=== PATIENT | male | born 1950 | race Caucasian/White ===

== ENCOUNTER 2016-10-01 09:56 | Emergency (ER) | payer MEDICARE, OTHER ==
[~2016-10-01] VITALS: Ht 182.9 cm; Wt 107.7 kg
[~2016-10-01 09:56] MED LIST: ALPR0.5T8 PO; ALPR1TAB2 PO; ASPI81TA3 PO; AZIT250T4 PO; CETI10CA PO; CYAN500 PO; FLUO40CA12 PO; METO10TA3 PO; MULT-1018 PO; OXYC1TAB24 PO; OXYC40TA53 PO; PRAZ2CAP2 PO; PROC-4 PO; [UNRECOGNIZED DRUG - CODE] PO
[2016-10-01 10:12] VITALS: BP 120/75; PULSE 101; RESP 20; O2SAT 96
[2016-10-01 10:40] LABS: BASOPHILS % (AUTO) 0 % (0-3); EOSINOPHILS % (AUTO) 0.6 % (0-5); MONOCYTES % (AUTO) 10.1 % (4-12); Mean Corpuscular Hemoglobin 32.2 pg (27.0-35.0); Mean Corpuscular Volume 95.6 fL (81-100); NEUTROPHILS % (AUTO) 63.3 % (40-74); Platelet Count 68 bil/L (150-400)
--- NOTE | 2016-10-01 11:11 | ED.REPORT ---
HPI-Abd Pain F 2 and Over Date of Service Oct 01, 2016 ED Provider: Moiz Boyd DO Nursing Notes Stated Complaint: FLU SYMPTOMS Chief Complaint: FLU/Cold Symptoms Allergies: Coded Allergies: Penicillins (Verified Allergy, Severe, itch, burn, breakout, face swelling , 01/29/16) scopolamine (Verified Allergy, Unknown, UNKNOWN, 01/29/16) sulfamethoxazole (Verified Allergy, Unknown, UNKNOWN, 01/29/16) trimethoprim (Verified Allergy, Unknown, UNKNOWN, 01/29/16) gabapentin (Verified Adverse Reaction, Severe, INCREASING SEDATION, 01/29/16 ) hydrocodone (Verified Adverse Reaction, Intermediate, N/V, 01/29/16) morphine (Verified Adverse Reaction, Intermediate, Hallucinations, 01/29/16) Pt. states he has had it whithout having hallucinations promethazine (Verified Adverse Reaction, Intermediate, TWITCHING FOR SEVERAL DAYS, 01/29/16) Uncoded Allergies: silk sutures (Allergy, Severe, body rejected, became infected, 08/02/12) Scheduled Alprazolam (Alprazolam) 0.5 Mg Tablet 1 MG PO 0630,12,18 Aspirin Chew (Aspirin Chew) 81 Mg Chew 81 MG PO DAILY Azithromycin (Zithromax (Z-Diego)) 250 Mg Tablet 250 MG PO DAILY Cetirizine HCl (Zyrtec) 10 Mg Capsule 10 MG PO MORNING Cyanocobalamin (Vitamin B12) 1,000 Mcg Tablet 1,000 MCG PO MORNING Fluoxetine (Prozac) 40 Mg Capsule 40 MG PO BID Multivitamin (Multi Vitamin Daily) 1 Each Tablet 1 EACH PO DAILY Oseltamivir Phosphate (Tamiflu) 75 Mg Capsule 75 MG PO BID Paregoric (Paregoric) 2 Mg/5 Ml Liquid 4 MG PO QID Prazosin (Prazosin) 2 Mg Capsule 4 MG PO HS oxyCODONE ER (oxyCODONE ER) 40 Mg Tab.er.12h 40 MG PO Q8 Scheduled PRN Alprazolam (Xanax) 1 Mg Tablet 1 MG PO TID PRN PRN For Anxiety Metoclopramide (Metoclopramide) 10 Mg Tablet 10 MG PO Q6H PRN PRN For Nausea Prochlorperazine Maleate (Compazine) 10 Mg Tablet 10 MG PO QID PRN PRN For Nausea oxyCODONE-Acetaminophen 5-325 mg (oxyCODONE-Acetaminophen 5-325 mg) 1 Each Tablet 1 TABLET PO Q6H PRN PRN For Pain Past Medical History Smoking History Former Smoker Physical Exam Initial Vital Signs Vital Signs (First) Date Time Temp Pulse Resp B/P Pulse Ox O2 Delivery O2 Flow Rate FiO2 10/01/16 10:12 38.2 101 20 120/75 96 Room Air Interpretation & Diagnostics Lab Results Interpretation Result Diagram: 10/01/16 1033 10/01/16 1033 Test 10/01/16 10:33 White Blood Count 1.7th/mm3 (3.8-10.1) Red Blood Count 4.07mil/mm3 (4.40-5.80) Hemoglobin 13.1g/dL (13.8-17.2) Hematocrit 38.9% (41.0-50.0) Mean Corpuscular Volume 95.6fL (81-100) Mean Corpuscular Hemoglobin 32.2pg (27.0-35.0) Mean Corpuscular Hemoglobin Concent 33.7% (32.0-37.0) Red Cell Distribution Width 14.3% (12.3-15.4) Platelet Count 68bil/L (150-400) Neutrophils (%) (Auto) 63.3% (40-74) Lymphocytes (%) (Auto) 26.0% (14-46) Monocytes (%) (Auto) 10.1% (4-12) Eosinophils (%) (Auto) 0.6% (0-5) Basophils (%) (Auto) 0% (0-3) Sodium Level 135mEq/L (134-144) Potassium Level 3.8mEq/L (3.5-5.2) Chloride Level 95mEq/L (97-108) Carbon Dioxide Level 26mmol/L (18-29) Blood Urea Nitrogen 15mg/dL (8-27) Creatinine 0.90mg/dL (0.76-1.27) Estimat Glomerular Filtration Rate 89mL/min (>59) Glucose Level 147mg/dL (60-99) Lactic Acid Level 1.4mmol/L (0.4-2.0) Calcium Level 8.9mg/dL (8.5-10.1) Total Bilirubin 0.5mg/dL (0.0-1.2) Aspartate Amino Transf (AST/SGOT) 24U/L (0-50) Alanine Aminotransferase (ALT/SGPT) 20U/L (0-44) Alkaline Phosphatase 124U/L (25-160) Total Protein 7.4g/dL (6.4-8.4) Albumin 3.8g/dL (3.4-5.0) Discharge & Departure Referrals: Jaimee Mott MD (PCP) Jd Olvera Oct 01, 2016 11:11 Leatha Emerson Oct 01, 2016 11:59
--- NOTE | 2016-10-01 11:11 | ED.REPORT ---
HPI-General Illness Date of Service Oct 01, 2016 ED Provider: Moiz Boyd DO 65 year old male patient with history of hypogammaglobulinemia, lymphoma, bone marrow cancer and Castleman's disease, presents to ED complaining of a flu-like illness that began 3 days ago. He complains of a fever (max 103), headache, difficulty sleeping, shaking, fatigue, malaise, diaphoresis, chills, and productive cough with sputum. Slight cough and headache began 3 days ago with the rest of his symptoms starting yesterday. Patient describes feeling "liquid in ears" during cough and describes sputum originating from head and not from lungs. Patient underwent CT scan yesterday and currently is receiving IVIG infusions. Patient took Tylenol and santo seltzer at home with some relief. Denies nausea, vomiting, diarrhea, or dysuria. Nursing Notes Stated Complaint: FLU SYMPTOMS Chief Complaint: FLU/Cold Symptoms Nursing Notes Reviewed: Yes Allergies: Coded Allergies: Penicillins (Verified Allergy, Severe, itch, burn, breakout, face swelling , 01/29/16) scopolamine (Verified Allergy, Unknown, UNKNOWN, 01/29/16) sulfamethoxazole (Verified Allergy, Unknown, UNKNOWN, 01/29/16) trimethoprim (Verified Allergy, Unknown, UNKNOWN, 01/29/16) gabapentin (Verified Adverse Reaction, Severe, INCREASING SEDATION, 01/29/16 ) hydrocodone (Verified Adverse Reaction, Intermediate, N/V, 01/29/16) morphine (Verified Adverse Reaction, Intermediate, Hallucinations, 01/29/16) Pt. states he has had it whithout having hallucinations promethazine (Verified Adverse Reaction, Intermediate, TWITCHING FOR SEVERAL DAYS, 01/29/16) Uncoded Allergies: silk sutures (Allergy, Severe, body rejected, became infected, 08/02/12) Scheduled Alprazolam (Alprazolam) 0.5 Mg Tablet 1 MG PO 0630,,18 Aspirin Chew (Aspirin Chew) 81 Mg Chew 81 MG PO DAILY Azithromycin (Zithromax (Z-Diego)) 250 Mg Tablet 250 MG PO DAILY Cetirizine HCl (Zyrtec) 10 Mg Capsule 10 MG PO MORNING Cyanocobalamin (Vitamin B12) 1,000 Mcg Tablet 1,000 MCG PO MORNING Fluoxetine (Prozac) 40 Mg Capsule 40 MG PO BID Multivitamin (Multi Vitamin Daily) 1 Each Tablet 1 EACH PO DAILY Oseltamivir Phosphate (Tamiflu) 75 Mg Capsule 75 MG PO BID Paregoric (Paregoric) 2 Mg/5 Ml Liquid 4 MG PO QID Prazosin (Prazosin) 2 Mg Capsule 4 MG PO HS oxyCODONE ER (oxyCODONE ER) 40 Mg Tab.er.12h 40 MG PO Q8 Scheduled PRN Alprazolam (Xanax) 1 Mg Tablet 1 MG PO TID PRN PRN For Anxiety Metoclopramide (Metoclopramide) 10 Mg Tablet 10 MG PO Q6H PRN PRN For Nausea Prochlorperazine Maleate (Compazine) 10 Mg Tablet 10 MG PO QID PRN PRN For Nausea oxyCODONE-Acetaminophen 5-325 mg (oxyCODONE-Acetaminophen 5-325 mg) 1 Each Tablet 1 TABLET PO Q6H PRN PRN For Pain General Time Seen by MD: 11:05 Chief Complaint Flu-like illness Hx Obtained From: Patient Arrived By: Walk-in Sudden in Onset?: No Onset Occurred: 3 days ago Symptom Duration: Since onset Severity: Current: Moderate Severity: Maximum: Moderate Associated with: Reports: Cough (productive, sputum from head not lungs), Diaphoresis, Fever, Weakness, Denies: Nausea Additional Notes: patient reports shaking Pertinent Negative: Pt denies other symptoms (diarrhea ) Context Related History: Reports Cancer Recent Healthcare: No recent hospitalization, Recent doctor visit (Dr. Siu , Oncologist) Similar Sx Previous: No Past Medical History Past Medical History Notes: Patient has hypogammaglobulinemia and prior hyperlipidemia ,lymphoma, bone cancer and castleman's disease. Patient currently recieves IVIG infusions. Past Medical History 1. Hypertension. 2. Dyslipidemia. 3. Coronary artery disease. Cardiac catheterization (August 21, 2011) showed normal left main; 90% proximal LAD stenosis; normal circumflex distribution; normal RCA distribution; LVEF 60%. The patient underwent angioplasty with placement of a Xience drug-eluting stent in the proximal LAD. 4. 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 5. 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 On monthly IVIG for hypogammaglobulinemia. 6. Gram-negative sepsis (June 19, 2013). One of two blood cultures yielded Stenotrophomonas maltophilia; a four week course of Levaquin was prescribed), ended July 19, 2013). 7. Influenza A (August 15, 2013). 8. Recurrent shingles. 9. anxiety 10. Depression 11. Hospital admission 10/23/2015-10/29/2015 for metapneumovirus community acquired pneumonia. 12. Neuropathy 13. Chronic back pain Reports: Cancer (bone marrow cancer and lymphoma) Past Surgical History right knee replacement left knee replacement Sinus surgery 6 abdominal surgery Heart catheter with stent Blood transfusion Family History Noncontributory Smoking History Former Smoker Social History Alcohol Use: Denies alcohol use Drug Use: Denies drug use Other Social History: Local resident Ambulatory Status Independent Review of Systems Patient has difficulty sleeping. Full Review of Systems Constitutional: Reports: Chills, Fatigue, Fever, Malaise Ears / Nose / Throat: Reports: Nasal congestion Respiratory: Reports: Prod cough, clear GI: Denies: Diarrhea, Vomiting Skin: Reports Diaphoresis Complete sys rev & neg: except as marked. Physical Exam Vital Signs Vital Signs Date Time Temp Pulse Resp B/P Pulse Ox O2 Delivery O2 Flow Rate FiO2 10/01/16 11:51 88 16 124/62 92 10/01/16 10:12 38.2 101 20 120/75 96 Room Air Initial VS: Reviewed Head / Eyes: Atraumatic, Normocephalic, PERRL ENT: Mucous membranes moist, Conjunctiva normal, No scleral icterus Neck: Supple, Non-tender, Full range of motion Respiratory: Breath sounds normal, Clear to auscultation Cardiovascular: Regular rate & rhythm, Heart sounds normal, Intact distal pulses Abdomen / GI: Soft, Non-tender, No guarding, No rebound, No distention Back: No CVA tenderness Lymphatic: No lymphadenopathy Extremities: Vascular intact, Neuro intact, No swelling, No tenderness Skin: Warm, Dry, No cyanosis Neurologic: Alert, Oriented, Nonfocal Psychiatric: Mood/affect normal, Behavior normal, Normal thought content General/Constitutional: Awake, Alert, Well appearing Interpretation & Diagnostics Interpretation & Diagnostics: Positive for Influenza A Lab Results Interpretation Result Diagram: 10/01/16 1033 10/01/16 1033 Test 10/01/16 10:33 White Blood Count 1.7th/mm3 (3.8-10.1) Red Blood Count 4.07mil/mm3 (4.40-5.80) Hemoglobin 13.1g/dL (13.8-17.2) Hematocrit 38.9% (41.0-50.0) Mean Corpuscular Volume 95.6fL (81-100) Mean Corpuscular Hemoglobin 32.2pg (27.0-35.0) Mean Corpuscular Hemoglobin Concent 33.7% (32.0-37.0) Red Cell Distribution Width 14.3% (12.3-15.4) Platelet Count 68bil/L (150-400) Neutrophils (%) (Auto) 63.3% (40-74) Lymphocytes (%) (Auto) 26.0% (14-46) Monocytes (%) (Auto) 10.1% (4-12) Eosinophils (%) (Auto) 0.6% (0-5) Basophils (%) (Auto) 0% (0-3) Sodium Level 135mEq/L (134-144) Potassium Level 3.8mEq/L (3.5-5.2) Chloride Level 95mEq/L (97-108) Carbon Dioxide Level 26mmol/L (18-29) Blood Urea Nitrogen 15mg/dL (8-27) Creatinine 0.90mg/dL (0.76-1.27) Estimat Glomerular Filtration Rate 89mL/min (>59) Glucose Level 147mg/dL (60-99) Lactic Acid Level 1.4mmol/L (0.4-2.0) Calcium Level 8.9mg/dL (8.5-10.1) Total Bilirubin 0.5mg/dL (0.0-1.2) Aspartate Amino Transf (AST/SGOT) 24U/L (0-50) Alanine Aminotransferase (ALT/SGPT) 20U/L (0-44) Alkaline Phosphatase 124U/L (25-160) Total Protein 7.4g/dL (6.4-8.4) Albumin 3.8g/dL (3.4-5.0) X-Ray Chest Interpretation Chest Xray Interpretation: IMPRESSION: Mildly reduced inspiratory volume, Port-A-Cath in normal position, source of shortness of breath is not found. Dictated by: Cal Mena M.D. on 10/01/2016 at 11:20 Interpretation / Wet Read by: Interpret - Radiologist Re-Eval/Medical Decision Med Decision/Clinical Course Clinically well-appearing with positive influenza A. Will treat with Tamiflu. Return and follow-up precautions given. Source of Hx: Old records Time of Eval: 11:30 Re-Evaluation/Progress Note: Discussed plan for discharge. All questions were addressed. Consultation : Referral / Consult Name: Tenzin Siu MD Call Returned at: 11:28 Sales Professional Bilingual: Will see patient Note: Dr. Siu wants to continue patient IVIG infusions tomorrow. Counseled Regarding: Diagnosis, Lab results, Need for follow-up, When/why to return to ED Discharge & Departure Primary Impression: Influenza due to influenza A virus Disposition: Home Discharge Condition All VS Reviewed: Yes Condition: Stable Additional Instructions: Thank you for entrusting us with your care today. You have tested positive for Influenza A. Take the Tamiflu as prescribed. Make sure to rest and drink plenty of fluids. I spoke with Dr. Siu who would like you to continue the IVIG treatment as scheduled. Please return to the emergency department for any new or concerning symptoms. Referrals: Jaimee Mott MD (PCP) Scribe Attestation Portions of this note were transcribed by Jd Olvera and Leatha Emerson. I, Dr. Can Casanova personally performed the history, physical exam and medical decision- making; I reviewed and confirmed the accuracy of the information in the transcribed note. Signed by: Jd Emerson, Scribes, 10/01/2016 and 1215. . copies to: Jaimee Mott MD, Timothy S DO Oct 01, 2016 11:11 Jd Olvera Oct 01, 2016 11:57 Leatha Emerson Oct 01, 2016 12:06
--- NOTE | 2016-10-01 11:23 | DRSVH ---
PROCEDURE: X-RAY CHEST, TWO VIEWS ([id number]) INDICATIONS: sob TECHNIQUE: 2 views of the chest were acquired. COMPARISON: [facility], CR, XR CHEST 1VW (PORTABLE), 06/19/2016, 13:46. [facility], CR, XR CHEST 2VW, 04/07/2016, 18:32. FINDINGS: Surgical changes and devices: Port-A-Cath in normal position from left-sided approach, surgical clips right axilla area. Lungs and pleura: No pleural effusions or pneumothorax. Lungs are clear. Mediastinum: Mediastinal contours are normal. Heart size is normal. Bones and chest wall: No suspicious bony abnormalities. Soft tissues appear unremarkable. IMPRESSION: Mildly reduced inspiratory volume, Port-A-Cath in normal position, source of shortness of breath is not found. Dictated by: Cal Mena M.D. on 10/01/2016 at 11:20 Approved by: Cal Mena M.D. on 10/01/2016 at 11:21
[2016-10-01] MEDS ORDERED: TAM75UDCAP PO (11:39)
[2016-10-01 11:51] VITALS: BP 124/62; PULSE 88; RESP 16; O2SAT 92
== END 2016-10-01 11:52 | disposition home or self-care (01) ==
LOC: SED 09:56
DX: J10.1 Influenza due to other identified influenza virus with other respiratory manifestations (principal); I10 Essential (primary) hypertension; I25.10 Atherosclerotic heart disease of native coronary artery without angina pectoris; Z98.61 Coronary angioplasty status; Z85.72 Personal history of non-Hodgkin lymphomas; Z85.830 Personal history of malignant neoplasm of bone; Z87.891 Personal history of nicotine dependence; Z79.82 Long term (current) use of aspirin; Z88.0 Allergy status to penicillin; Z88.2 Allergy status to sulfonamides; Z88.5 Allergy status to narcotic agent; Z88.8 Allergy status to other drugs, medicaments and biological substances

== ENCOUNTER 2016-11-14 15:08 | Inpatient (IN) | payer MEDICARE, OTHER ==
[~2016-11-14] VITALS: Ht 182.9 cm; Wt 106.0 kg
[~2016-11-14 15:08] MED LIST changes: -AZIT250T4 PO; +TAM75UDCAP PO
[2016-11-14 15:10] VITALS: BP 123/87; PULSE 94; RESP 16; O2SAT 99
[2016-11-14] MEDS ORDERED: 0.9% Sodium Chloride 1,000 ML IV ONE (16:05)
[2016-11-14] MEDS ORDERED: Ondansetron 2 mg/mL 2 mL Inj IVPUSH ONE (16:05)
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
[2016-11-14 16:19] LABS: BASOPHILS % (AUTO) 0 % (0-3); EOSINOPHILS % (AUTO) 0.4 % (0-5)
[2016-11-14 16:23] LABS: MONOCYTES % (AUTO) 12.3 % (4-12); Mean Corpuscular Volume 94.9 fL (81-100); NEUTROPHILS % (AUTO) 45.4 % (40-74); Platelet Count 91 bil/L (150-400)
[2016-11-14] MEDS: HYDROmorphone 0.5 mg/0.5 mL iSecure Syringe IVPUSH PRN ×3 (16:25→22:28)
[2016-11-14 16:42] LABS: Magnesium 2.3 mg/dL (1.6-2.6)
--- NOTE | 2016-11-14 17:36 | DRSVH ---
PROCEDURE: CT ABDOMEN AND PELVIS WITH CONTRAST ([id number]) INDICATIONS: ABd pain LLQ TECHNIQUE: After the administration of intravenous contrast, 5 mm thick sections acquired from the diaphragm to the symphysis. 5 mm coronal and sagittal reformats were acquired. For radiation dose reduction, the following was used: automated exposure control, adjustment of mA and/or kV according to patient siquentin martin. COMPARISON: [facility], CT, CT CHEST ABD PELVIS W CON, 09/30/2016, 9:47. [facility], CT, ABD/PELVIS W/CON (PNL), 01/30/2010, 19:20. FINDINGS: Image quality: Excellent. ABDOMEN: Lung bases: Lung bases are clear. Heart size is normal. Solid organs: Liver is within normal limits. No change in splenomegaly. Gallbladder is within normal limits. Biliary system is non dilated. Pancreas enhances normally and is diffusely atrophic. No a drenal nodules. Bilateral renal cysts are present. Within the right inferior pole right kidney media lly, there is an ovoid 20 mm diameter soft tissue density focus, as before. There is a nonobstructing 3 mm diameter calculus within the inferior pole left kidney, as before. Kidneys demonstrate otherwis e normal size and enhancement, without hydronephrosis. Peritoneum and bowel: Patient appears be status post gastrojejunostomy. Mildly distended and fluid-f illed small bowel loops within the left hemiabdomen and central pelvis are present. There is no discr ete transition point between distended in nondistended small bowel, although evaluation for such is l imited by lack of oral contrast. No free fluid or air. Normal appendix. Nodes and vessels: No retroperitoneal or mesenteric adenopathy by size criteria. Aorta and inferior vena cava are normal in size. Miscellaneous: No ventral hernias. PELVIS: Genitourinary: Bladder wall thickness is normal. Miscellaneous: No inguinal hernias or adenopathy. Bones: No suspicious bony lesions. ORIF of the pubic symphysis has been performed. No vertebral bod y compression fractures. IMPRESSION: 1. Mildly distended and fluid-filled small bowel loops, possibly indicating ileus, obstruction, or ga stroenteritis. 2. No significant change in right inferior pole renal mass versus hyperdense cyst. 3. Nonobstructing left inferior pole nephrolith. 4. No change in splenomegaly. 5. Normal appendix. Dictated by: Sangita Dillard M.D. on 11/14/2016 at 17:27 Approved by: Sangita Dillard M.D. on 11/14/2016 at 17:32
[2016-11-14] MEDS ORDERED: ALPR2TAB6 PO ×2 (18:29)
[2016-11-14] MEDS ORDERED: DRON2.5C10 PO (18:34)
[2016-11-14] MEDS ORDERED: GUAI600T86 PO (18:37)
[2016-11-14] MEDS ORDERED: NORT25CA PO (18:37)
[2016-11-14] MEDS ORDERED: OMEP20CA11 PO (18:37)
[2016-11-14] MEDS ORDERED: OXYC80TA PO (18:37)
[2016-11-14] MEDS ORDERED: OXYC1TAB24 PO (18:40)
[2016-11-14] MEDS ORDERED: [UNRECOGNIZED DRUG - CODE] PO (18:42)
[2016-11-14] MEDS ORDERED: FLUO40CA PO (18:44)
[2016-11-14] MEDS ORDERED: FLUO20CA25 PO (18:46)
[2016-11-14] MEDS ORDERED: 0.9% Sodium Chloride 1,000 ML IV SCH (19:52)
[2016-11-14] MEDS ORDERED: Alum-Mag Hydrox-Simeth 30 mL Suspension PO PRN (19:55)
[2016-11-14] MEDS ORDERED: Ondansetron 2 mg/mL 2 mL Inj IVPUSH PRN (19:55)
[2016-11-14 20:22] VITALS: BP 133/82; PULSE 60; RESP 18; O2SAT 96
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
[2016-11-14 23:10] LABS: APPEARANCE,URINE CLEAR (CLEAR,HAZY); COLOR,URINE DARK YELLOW (YELLOW); OCCULT BLOOD,URINE NEGATIVE (NEGATIVE); UROBILINOGEN,URINE NORMAL (NORMAL)
[2016-11-14] MEDS ORDERED: HYDROmorphone 0.5 mg/0.5 mL iSecure Syringe IVPUSH PRN (23:40)
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
[2016-11-15] VITALS (8 sets, daily range): BP systolic 109–147; BP diastolic 73–87; PULSE 62–91; RESP 16–18; O2SAT 94–97
[2016-11-15] MEDS: Pantoprazole 4 mg/mL 10 mL Inj IVPUSH SCH ×3 (01:00→17:49)
[2016-11-15] MEDS: D5 0.45% NaCl + KCl 20 mEq/L 1,000 ML IV SCH ×2 (02:04→16:03)
--- NOTE | 2016-11-15 07:33 | NUR ---
admit Left abdominal pain rated 7 on admit. No nausea. IV Dilaudid 0.5mg given and pain reduced to 3. UA sent, no stool overnight - still need stool sample.
[2016-11-15 08:49] LABS: BASOPHILS % (AUTO) 0 % (0-3); EOSINOPHILS % (AUTO) 1.6 % (0-5); MONOCYTES % (AUTO) 11.4 % (4-12); Mean Corpuscular Hemoglobin 31.8 pg (27.0-35.0); Mean Corpuscular Volume 96.3 fL (81-100); NEUTROPHILS % (AUTO) 41.1 % (40-74); Platelet Count 78 bil/L (150-400)
--- NOTE | 2016-11-15 12:02 | PCM.PNSURG ---
Subjective Visit Information: Reason for Visit Abdominal Pain,Sbo Surgery/Surgery Date Post-Op Day # Date of Admission: Nov 14, 2016 at 19:16 Hospital Day # Subjective: doing a lot better, no vomiting, abd pain better, passing flatus Objective Objective Awake in bed Abd: midline scar, soft, nontender Vital Sign- Last 8 Hours Date Time Temp Pulse Resp B/P Pulse Ox O2 Delivery O2 Flow Rate FiO2 11/15/16 10:14 91 128/87 11/15/16 10:13 86 123/79 11/15/16 10:10 36.7 69 18 126/73 97 Room Air 11/15/16 04:44 36.6 82 18 118/82 94 Room Air 11/15/16 04:43 36.6 78 18 147/84 96 Room Air 11/15/16 04:42 36.6 68 16 131/79 95 Room Air Intake and Output- Last 8 Hour 11/15/16 Cumulative From/Thru 06:59 11/14/16 15:10 - 11/15/16 06:00 Intake Total 1310 ml 2310 ml Output Total 470 ml 470 ml Balance 840 ml 1840 ml Intake Oral 674 ml 674 ml IV Total 636 ml 1636 ml Output Urine Total 470 ml 470 ml # Voids 2 2 # Bowel Movements 0 0 Result Diagram: 11/15/16 0832 11/15/16 0832 Assessment & Plan Impression Abd pain, improved Lymphoma Thrombocytopenia Problems: Plan GI planning a colonoscopy tomorrow Sincere Galvez MD Nov 15, 2016 12:02
[2016-11-15] MEDS ORDERED: oxyCODONE-Acetamin 5-325 mg Tablet PO PRN (14:45)
--- NOTE | 2016-11-15 14:46 | CONS ---
[address] [address] CONSULTATION REPORT PATIENT: ELIO GARCIA : 1950 MR#: [id number] ADMIT: 11/14/2016 JOB ID: [id number] DATE OF SERVICE: 11/15/2016 GASTROENTEROLOGY CONSULTATION: REASON FOR CONSULTATION: Abnormal CT scan, abdominal pain, diarrhea. HISTORY OF PRESENT ILLNESS: A pleasant 66-year-old male with history of hypertension, hyperlipidemia, 90% proximal LAD stenosis, left ventricular ejection fraction 60%, history of chronic leukopenia, chronic thrombocytopenia due to , chronic hypogammaglobulinemia due to history recurrent infections, a left superior port in February 04, 2016 for monthly IVIG, prior stage IV lymphoblastic lymphoma, , Castleman disease, history of right and left knee replacement, coronary artery disease, who presents for consultation for abnormal CT scan and abdominal pain. The patient states approximately six days ago he was eating lasagna with meat sauce. The patient then started having abdominal pain right after that and three days thereon he started having diarrhea two times per day, nonbloody. The patient states he has diffuse abdominal pain, mild in intensity, constant. The patient then presented to the emergency department. The patient had a CT scan that was done on November 14, 2016 with contrast down in the pelvis which showed mildly distended small bowel loops and possibly indicating ileus, obstruction, gastroenteritis, nonobstructing left upper pole kidney stone, otherwise negative. Read by General Surgery states that there is thickening within the descending colon and sigmoid colon. In the past, the patient states he has had an EGD and colonoscopy that was done in the past. On the record, this was done on March 16, 2014 which showed esophagitis, gastritis, normal ileum. The patient had a Billroth II anastomosis and sigmoid diverticulosis. It was recommended his repeat colonoscopy should be in seven years at that time. The patient denies family history of colon cancer, inflammatory bowel disease or celiac disease. The patient denies rectal bleeding, nausea, vomiting, hematemesis, or unintentional weight loss. PAST MEDICAL HISTORY: As stated above. PAST SURGERIES: As stated above. MEDICATIONS AT HOME: 1. Alprazolam. 2. Aspirin. 3. Zyrtec. 4. Vitamin B12. 5. Bromperidol. 6. Fluoxetine. 7. Guaifenesin. 8. Multivitamin. 9. Nortriptyline. 10. Omeprazole at 20 in the morning. 11. OxyContin. 12. Oxycodone/acetaminophen. 13. as needed. SOCIAL HISTORY: He quit drinking 40 years ago. His prior IV drug use is unknown. Tobacco: Smoked for 10 years a pack per day. Quit 37 years ago. FAMILY HISTORY: Negative for colon cancer, inflammatory bowel disease or celiac disease. REVIEW OF SYSTEMS: The patient denies headache, blurred vision, nausea, vomiting, chest pain, shortness of breath. Positive for abdominal pain. No skin rash or joint pain. PHYSICAL EXAMINATION: Vital signs upon presentation, temperature 36.7, pulse of 69, respiratory rate 18, blood pressure 126/73, satting 97% on room air. General: In no acute distress. Head: No scars. Eyes: Intact. Throat: Supple. Lungs: Clear to auscultation bilaterally. Cardiovascular: Regular rate. Abdomen is soft, nondistended. There is very minimal left lower quadrant pain upon palpation. Hypoactive bowel sounds. Extremities: No cyanosis, clubbing or edema. LABORATORIES: Labs show a white count 2.6, hemoglobin 12.1, hematocrit 36, platelet count 78. Sodium 137, potassium 4.2, chloride 100, bicarbonate 24, BUN 14, creatinine 0.88. Glucose 143. Calcium 9.1. Total bili 0.4. AST 12, ALT 16, alk phos 99, total protein 7.5, albumin 3.6, lipase 55. ASSESSMENT AND PLAN: This is a pleasant 66-year-old male with a history of chronic leukopenia, chronic thrombocytopenia due to , chronic hypogammaglobinemia due to history of recurrent infections, coronary artery disease, history of 90% proximal LAD stenosis, left ventricular ejection fraction 60%, history of subclavian port February 04, 2016 for monthly IVIG, history of stage IV lymphoplastic lymphoma, Waldenstrom microglobulinemia, Castleman disease, left hip replacement, history of Billroth II gastrojejunal anastomosis presents here with abdominal pain and thickening of the descending and sigmoid colon. The patient's CT scan is suggestive of small bowel obstruction, but given the patient's history, this may just be due to viral gastroenteritis. In any case, we would do a colonoscopy to evaluate the abnormal thickening of the descending colon and sigmoid colon. RECOMMENDATIONS: 1. GoLYTELY prep today. 2. Colonoscopy with anesthesia tomorrow. 3. If patient has recurrent diarrhea, then please check stool studies including CMV, IgG, IgM and PCR in the blood. Will continue to follow.
[2016-11-15] MEDS ORDERED: PEG/Electrolytes 4,000 mL Solution PO ONE (16:00)
--- NOTE | 2016-11-15 19:17 | NUR ---
PAIN/ACTIVITY Patient complained of headache throughout the shift. Administered tylenol and percocet prn. Patient states that helped and its not so bad now. Up ad vane, ambulating into bathroom independently. gait steady. Started colonoscopy prep @ 1600 and has been complaint and drinking it. Care continues.
[2016-11-15] MEDS ORDERED: oxyCODONE ER 80 mg ER12 Tablet PO SCH (20:30)
--- NOTE | 2016-11-15 20:36 | PCM.PNMED ---
Subjective Date of Service Nov 15, 2016 Subjective Patient is seen and examined. States that he is having several bowel movements due to GoLYTELY prep and he does see some formed stool. Abdominal pain is pretty minimal and it is located in the left lower quadrant this a.m. Denies nausea vomiting abdominal distention. He appears comfortable laying in his bed and states that he is on a lot of chronic pain medications due to his cancer history and prior abdominal surgeries. States that his cancer has recurred and he is being treated now for the last 7 years he does not recall the medication that is being used to treat his cancer. He feels that his cancer was in remission for 8.5 years. Patient confirmed DO NOT RESUSCITATE status in the room. He is asking for his pain medications to be continued. Exam Vital Signs Vital Sign - Last Date Time Temp Pulse Resp B/P Pulse Ox O2 Delivery O2 Flow Rate FiO2 11/15/16 15:13 36.6 83 18 109/75 96 Room Air Intake and Output 11/14/16 11/14/16 11/15/16 Cumulative From/Thru 15:00 23:00 07:00 11/14/16 15:10 - 11/15/16 06:00 Intake Total 1000 ml 1310 ml 2310 ml Output Total 470 ml 470 ml Balance 1000 ml 840 ml 1840 ml Intake Oral 674 ml 674 ml IV Total 1000 ml 636 ml 1636 ml Output Urine Total 470 ml 470 ml # Voids 2 2 # Bowel Movements 0 0 Exam Gen.: Pleasant male in no acute distress HEENT: Normocephalic atraumatic Heart: Regular rate and rhythm no S3-S4 sounds Lungs: Clear to auscultation bilaterally Abdomen: Mild tenderness in lower left quadrant, nondistended, soft normal bowel sounds Extremities: Negative for edema Neuro: No focal deficits Psych: Negative for anxiety IVs and Medications Medications Reviewed: Medications were reviewed in detail Lab and Diagnostics Result Diagram: 11/15/16 0832 11/15/16 0832 X-Rays, CTs and MRIs [facility] Diagnostic [place] [address] Patient Name: ELIO GARCIA MR#: [id number] Location: [facility] [place] Ordering Phys: Jatin Ruffin MD Date of Service: 11/14/16 1603 PROCEDURE: CT ABDOMEN AND PELVIS WITH CONTRAST ([id number]) INDICATIONS: ABd pain LLQ TECHNIQUE: After the administration of intravenous contrast, 5 mm thick sections acquired from the diaphragm to the symphysis. 5 mm coronal and sagittal reformats were acquired. For radiation dose reduction, the following was used: automated exposure control, adjustment of mA and/or kV according to patient size. COMPARISON: [facility], CT, CT CHEST ABD PELVIS W CON, 09/30/2016, 9 :47. [facility], CT, ABD/PELVIS W/CON (PNL), 01/30/2010, 19:20. FINDINGS: Image quality: Excellent. ABDOMEN: Lung bases: Lung bases are clear. Heart size is normal. Solid organs: Liver is within normal limits. No change in splenomegaly. Gallbladder is within normal limits. Biliary system is non dilated. Pancreas enhances normally and is diffusely atrophic. No adrenal nodules. Bilateral renal cysts are present. Within the right inferior pole right kidney medially, there is an ovoid 20 mm diameter soft tissue density focus, as before. There is a nonobstructing 3 mm diameter calculus within the inferior pole left kidney, as before. Kidneys demonstrate otherwise normal size and enhancement, without hydronephrosis. Peritoneum and bowel: Patient appears be status post gastrojejunostomy. Mildly distended and fluid-filled small bowel loops within the left hemiabdomen and central pelvis are present. There is no discrete transition point between distended in nondistended small bowel, although evaluation for such is limited by lack of oral contrast. No free fluid or air. Normal appendix. Nodes and vessels: No retroperitoneal or mesenteric adenopathy by size criteria. Aorta and inferior vena cava are normal in size. Miscellaneous: No ventral hernias. PELVIS: Genitourinary: Bladder wall thickness is normal. Miscellaneous: No inguinal hernias or adenopathy. Bones: No suspicious bony lesions. ORIF of the pubic symphysis has been performed. No vertebral body compression fractures. IMPRESSION: 1. Mildly distended and fluid-filled small bowel loops, possibly indicating ileus, obstruction, or gastroenteritis. 2. No significant change in right inferior pole renal mass versus hyperdense cyst. 3. Nonobstructing left inferior pole nephrolith. 4. No change in splenomegaly. 5. Normal appendix. Dictated by: Sangita Dillard M.D. on 11/14/2016 at 17:27 Approved by: Sangita Dillard M.D. on 11/14/2016 at 17:32 Assessment & Plan This is a 66-year-old male with past medical history of stage IV lymphomam lymphoma/Kelton Zandra's agammaglobulinemia/Castleman's syndrome, thrombocytopenia, chronic leukopenia hypertension, CAD is here for a mild SBO that has resolved and now getting worked up for possible thickening versus malignancy in his colon. 1. Acute Small bowel obstruction: Patient has a history of this, however this time around his symptoms are better and he is almost back to baseline. Surgery recommended that he gets a colonoscopy to examine the sigmoid colon and descending colon that appears to have wall thickening. GI is counseled that and aware. They plan to take patient for a colonoscopy tomorrow a.m. 2. Concern for gastroenteritis: Continue to follow patient's bowel movement. Pattern. Consider ordering further IgG, stool cultures if this turns into gastroenteritis based on the Colonoscopy findings 3. Chronic problems: --1 hypertension continue home medications --2 chronic pain syndrome continue home medications --3. Chronic anxiety: Continue her medications Disposition possible discharge to home after colonoscopy tomorrow Pain Evaluation: Pain not Controlled VTE Mechanical Devices: Intermittant Pneumatic CD Resuscitation Status: DNR/DNI:Do Not Resuscitate/Intubate (daughter david is alternate decision maker) Kenyetta Germain DO Nov 15, 2016 20:36
[2016-11-15] MEDS ORDERED: oxyCODONE-Acetamin 5-325 mg Tablet PO SCH (21:00)
[2016-11-15] MEDS: oxyCODONE ER 40 mg ER12 Tablet PO SCH (21:38)
--- NOTE | 2016-11-16 00:20 | NUR ---
GI; pt states frequent liquid bms per bathroom. Has finished colyte prep.
--- NOTE | 2016-11-16 00:47 | NUR ---
GI; clear liquid yellow colored stool.
[2016-11-16] MEDS: D5 0.45% NaCl + KCl 20 mEq/L 1,000 ML IV SCH (04:12)
--- NOTE | 2016-11-16 04:54 | NUR ---
PAIN; no c/o headache. Pleasant. Slept on and off. States is waiting for colonoscopy in the a.m. Addendum: 11/16/16 at 0634 by RAMESH MOYER RN NPO at this time for colonoscopy.
[2016-11-16 06:38] VITALS: BP 126/77; PULSE 88; RESP 16; O2SAT 94
[2016-11-16 07:39] LABS: BASOPHILS % (AUTO) 0 % (0-3); EOSINOPHILS % (AUTO) 2.4 % (0-5); MONOCYTES % (AUTO) 10.8 % (4-12); Mean Corpuscular Hemoglobin 32.1 pg (27.0-35.0); Mean Corpuscular Volume 95.2 fL (81-100); NEUTROPHILS % (AUTO) 39.6 % (40-74); Platelet Count 91 bil/L (150-400)
[2016-11-16] MEDS: Pantoprazole 4 mg/mL 10 mL Inj IVPUSH SCH (07:48)
[2016-11-16] MEDS: oxyCODONE ER 40 mg ER12 Tablet PO SCH (07:48)
[2016-11-16] MEDS ORDERED: PROZ20 PO (08:08)
[2016-11-16] MEDS ORDERED: ALPR1TAB2 PO (08:08)
[2016-11-16] MEDS ORDERED: FLUO40CA12 PO ×2 (08:08→08:11)
[2016-11-16] MEDS ORDERED: ALPR2TAB2 PO ×2 (08:08→08:09)
[2016-11-16] MEDS ORDERED: 0.9% Sodium Chloride 250 ML IV SCH (08:14)
[2016-11-16] MEDS ORDERED: HepLOK Flush 100 unit/mL 5 mL Inj IVFLUSH PRN (08:15)
[2016-11-16] MEDS ORDERED: Sodium Chloride LOK Flush 10 mL Syringe IVFLUSH PRN ×2 (08:15)
--- NOTE | 2016-11-16 08:32 | NUR ---
OFF FLOOR TO ENDO Report given to Cary in Endo. Patient voided and then transferred into wheelchair and was taken off floor to endoscopy.
[2016-11-16 08:43] VITALS: BP 133/86; PULSE 87; RESP 14; O2SAT 98
[2016-11-16] MEDS ORDERED: Lactated Ringer's 1,000 ML IV ONE (08:46)
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
[2016-11-16 09:12] VITALS: BP 103/64; PULSE 91; RESP 14; O2SAT 98
[2016-11-16 09:16] VITALS: BP 107/68; PULSE 80; RESP 14; O2SAT 96
[2016-11-16 09:24] VITALS: BP 119/72; PULSE 93; RESP 16; O2SAT 97
[2016-11-16 09:29] VITALS: BP 137/84; PULSE 96; RESP 16; O2SAT 98
--- NOTE | 2016-11-16 09:34 | PCM.ANEP1 ---
Post Anesthesia Phase 1 PACU Phase 1 Assessment Vital Signs Vital Signs Date Time Temp Pulse Resp B/P Pulse Ox O2 Delivery O2 Flow Rate FiO2 11/16/16 09:29 96 16 137/84 98 Room Air 11/16/16 09:24 93 16 119/72 97 Room Air 11/16/16 09:16 80 14 107/68 96 Nasal Cannula 2 11/16/16 09:12 91 14 103/64 98 Nasal Cannula 4 11/16/16 08:43 36 87 14 133/86 98 Room Air 11/16/16 06:38 36.7 88 16 126/77 94 Room Air Anesthetic Administered: GA Level of Alertness: Awake, talking AVENDAÑO's with Equal Strength: Yes Pain: No Nausea or Vomiting: No Oxygen Delivery: Room Air Lungs: Normal Air Movement Juan Parker MD Nov 16, 2016 09:34
--- NOTE | 2016-11-16 09:35 | PCM.ANEP2 ---
Post Anesthesia Evaluation ASA/CMS Post Anesthesia VS in Patient's Normal Range?: Yes Resp Stable; Airway Patent?: Yes CV Function & Hydration Stable: Yes Mental Status Recovered?: Yes Pain control Satisfactory?: Yes N/V Control Satisfactory?: Yes Juan Parker MD Nov 16, 2016 09:35
--- NOTE | 2016-11-16 10:31 | NUR ---
BACK FROM ENDO Alert and awake. States he's feeling fine, but thirsty. Given ice water and a lemon [place] soda. wanting to discharge home. Notified hospitalist.
--- NOTE | 2016-11-16 12:12 | PCM.PNMED ---
Subjective Date of Service Nov 16, 2016 Subjective CMV, IgG, IgM and PCR in the blood Exam Vital Signs Vital Sign - Last Date Time Temp Pulse Resp B/P Pulse Ox O2 Delivery O2 Flow Rate FiO2 11/15/16 20:10 36.3 62 18 146/76 97 Room Air Intake and Output 11/15/16 11/15/16 11/16/16 Cumulative From/Thru 15:00 23:00 07:00 11/14/16 15:10 - 11/16/16 04:24 Intake Total 1551 ml 750 ml 4611 ml Output Total 1625 ml 2095 ml Balance -74 ml 750 ml 2516 ml Intake Oral 700 ml 1374 ml IV Total 851 ml 750 ml 3237 ml Output Urine Total 1325 ml 1795 ml Stool Total 300 ml 300 ml # Voids 2 # Bowel Movements 0 Lab and Diagnostics Result Diagram: 11/15/16 0832 11/15/16 0832 X-Rays, CTs and MRIs [facility] Diagnostic [place] [address] Patient Name: ELIO GARCIA MR#: [id number] Location: [facility] [place] Ordering Phys: Jatin Ruffin MD Date of Service: 11/14/16 1603 PROCEDURE: CT ABDOMEN AND PELVIS WITH CONTRAST ([id number]) INDICATIONS: ABd pain LLQ TECHNIQUE: After the administration of intravenous contrast, 5 mm thick sections acquired from the diaphragm to the symphysis. 5 mm coronal and sagittal reformats were acquired. For radiation dose reduction, the following was used: automated exposure control, adjustment of mA and/or kV according to patient size. COMPARISON: [facility], CT, CT CHEST ABD PELVIS W CON, 09/30/2016, 9 :47. [facility], CT, ABD/PELVIS W/CON (PNL), 01/30/2010, 19:20. FINDINGS: Image quality: Excellent. ABDOMEN: Lung bases: Lung bases are clear. Heart size is normal. Solid organs: Liver is within normal limits. No change in splenomegaly. Gallbladder is within normal limits. Biliary system is non dilated. Pancreas enhances normally and is diffusely atrophic. No adrenal nodules. Bilateral renal cysts are present. Within the right inferior pole right kidney medially, there is an ovoid 20 mm diameter soft tissue density focus, as before. There is a nonobstructing 3 mm diameter calculus within the inferior pole left kidney, as before. Kidneys demonstrate otherwise normal size and enhancement, without hydronephrosis. Peritoneum and bowel: Patient appears be status post gastrojejunostomy. Mildly distended and fluid-filled small bowel loops within the left hemiabdomen and central pelvis are present. There is no discrete transition point between distended in nondistended small bowel, although evaluation for such is limited by lack of oral contrast. No free fluid or air. Normal appendix. Nodes and vessels: No retroperitoneal or mesenteric adenopathy by size criteria. Aorta and inferior vena cava are normal in size. Miscellaneous: No ventral hernias. PELVIS: Genitourinary: Bladder wall thickness is normal. Miscellaneous: No inguinal hernias or adenopathy. Bones: No suspicious bony lesions. ORIF of the pubic symphysis has been performed. No vertebral body compression fractures. IMPRESSION: 1. Mildly distended and fluid-filled small bowel loops, possibly indicating ileus, obstruction, or gastroenteritis. 2. No significant change in right inferior pole renal mass versus hyperdense cyst. 3. Nonobstructing left inferior pole nephrolith. 4. No change in splenomegaly. 5. Normal appendix. Dictated by: Sangita Dillard M.D. on 11/14/2016 at 17:27 Approved by: Sangita Dillard M.D. 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 1. Acute Small bowel obstruction: Patient has a history of this, however this time around his symptoms are better and he is almost back to baseline. Surgery recommended that he gets a colonoscopy to examine the sigmoid colon and descending colon that appears to have wall thickening. GI is counseled that and aware. They plan to take patient for a colonoscopy tomorrow a.m. 2. Concern for gastroenteritis: Continue to follow patient's bowel movement. Pattern. Consider ordering further IgG, stool cultures if this turns into gastroenteritis based on the Colonoscopy findings 3. Chronic problems: --1 hypertension continue home medications --2 chronic pain syndrome continue home medications --3. Chronic anxiety: Continue her medications Disposition possible discharge to home after colonoscopy tomorrow VTE Mechanical Devices: Intermittant Pneumatic CD Resuscitation Status: DNR/DNI:Do Not Resuscitate/Intubate (daughter david is alternate decision maker) Kenyetta Germain DO Nov 16, 2016 06:24
--- NOTE | 2016-11-16 12:36 | PCM.DIMED ---
Discharge Instructions Date of Service Nov 16, 2016 Dates of Hospitalization Nov 14, 2016 at 19:16 Discharge Diagnosis Discharge Diagnosis Diarrhea likely due to infectious vs. inflammatory va ischemic colitis, abdominal pain, HTN, neuropathy Diet Other (Diet with fiber, low salt) Activity No restrictions Call your provider Fever or Chills, Shortness of breath, Bleeding, Chest pain, Vomitting, Excessive diarrhea, Weakness (unilateral), Other Patient Instructions Please follow up with GI in 2 weeks Please follow up with PCP in 2 weeks Kenyetta Germain DO Nov 16, 2016 12:36
--- NOTE | 2016-11-16 12:41 | PCM.DC.MED ---
Discharge Summary Date of Service Nov 16, 2016 Dates of Hospitalization Date of Hospital Admission Nov 14, 2016 at 19:16 Date of Discharge: Nov 15, 2016 Providers: Admitting Physician: Carmencita Downs MD Primary Care Physician: Jaimee Mott MD Attending Physician: Carmencita Downs MD Diagnosis at Time of Discharge Diagnosis at Time of Discharge Diarrhea likely due to infectious vs. inflammatory va ischemic colitis, abdominal pain, HTN, neuropathy Consultations GI, General Surgery Procedures XRay, CTs & MRIs [facility] Diagnostic Imaging [place] [address] Patient Name: ELIO GARCIA MR#: [id number] Location: [facility] Ordering Phys: Jatin Ruffin MD Date of Service: 11/14/16 1603 PROCEDURE: CT ABDOMEN AND PELVIS WITH CONTRAST ([id number]) INDICATIONS: ABd pain LLQ TECHNIQUE: After the administration of intravenous contrast, 5 mm thick sections acquired from the diaphragm to the symphysis. 5 mm coronal and sagittal reformats were acquired. For radiation dose reduction, the following was used: automated exposure control, adjustment of mA and/or kV according to patient size. COMPARISON: [facility], CT, CT CHEST ABD PELVIS W CON, 09/30/2016, 9 :47. [facility], CT, ABD/PELVIS W/CON (PNL), 01/30/2010, 19:20. FINDINGS: Image quality: Excellent. ABDOMEN: Lung bases: Lung bases are clear. Heart size is normal. Solid organs: Liver is within normal limits. No change in splenomegaly. Gallbladder is within normal limits. Biliary system is non dilated. Pancreas enhances normally and is diffusely atrophic. No adrenal nodules. Bilateral renal cysts are present. Within the right inferior pole right kidney medially, there is an ovoid 20 mm diameter soft tissue density focus, as before. There is a nonobstructing 3 mm diameter calculus within the inferior pole left kidney, as before. Kidneys demonstrate otherwise normal size and enhancement, without hydronephrosis. Peritoneum and bowel: Patient appears be status post gastrojejunostomy. Mildly distended and fluid-filled small bowel loops within the left hemiabdomen and central pelvis are present. There is no discrete transition point between distended in nondistended small bowel, although evaluation for such is limited by lack of oral contrast. No free fluid or air. Normal appendix. Nodes and vessels: No retroperitoneal or mesenteric adenopathy by size criteria. Aorta and inferior vena cava are normal in size. Miscellaneous: No ventral hernias. PELVIS: Genitourinary: Bladder wall thickness is normal. Miscellaneous: No inguinal hernias or adenopathy. Bones: No suspicious bony lesions. ORIF of the pubic symphysis has been performed. No vertebral body compression fractures. IMPRESSION: 1. Mildly distended and fluid-filled small bowel loops, possibly indicating ileus, obstruction, or gastroenteritis. 2. No significant change in right inferior pole renal mass versus hyperdense cyst. 3. Nonobstructing left inferior pole nephrolith. 4. No change in splenomegaly. 5. Normal appendix. Dictated by: Sangita Dillard M.D. on 11/14/2016 at 17:27 Approved by: Sangita Dillard M.D. on 11/14/2016 at 17:32 Invasive Procedures Colonoscopy on 11/15/[address] Dee: mild erythema with ulcerations seen at 30 cm from the anus in a linear fashion, which was biopsied. 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 1. Acute Small bowel obstruction: Patient has a history of this, however this time around his symptoms are better and he is almost back to baseline. Surgery recommended that he gets a colonoscopy to examine the sigmoid colon and descending colon that appears to have wall thickening. GI is counseled that and aware. They have done a colonoscopy on 11/15/16 and found mild erythema with ulcerations seen at 30 cm from the anus in a linear fashion. Biopsies were taken and patient tolerated the procedure well. -- He is toelrating general diet, states his nausea, vomiting and diarrhea have completely resolved. Wanting to return to home. 2. Concern for gastroenteritis: Continue to follow patient's bowel movement. Pattern. TTGIgA, IgG, stool cultures are ordered. Stool fecal leuk and fat studies are ordered. 3. Chronic problems: --1 hypertension continued home medications --2 chronic pain syndrome continued home medications --3. Chronic anxiety: Continued her medications Exam Vital Signs (Last) Date Time Temp Pulse Resp B/P Pulse Ox O2 Delivery O2 Flow Rate FiO2 11/16/16 09:34 Room Air 11/16/16 09:29 96 16 137/84 98 11/16/16 09:16 2 11/16/16 08:43 36 Exam General: NAD HEENT: Normocephalic, atraumatic Heart: RRR, no s3/s4 Lungs: CTA, no crackles or wheezes Abd: NT/ND, normal bowel sounds Ext: Neg for edema Psych: Neg for anxiety Neuro: No focal deficits Test 11/14/16 16:00 11/14/16 16:28 11/14/16 23:06 11/16/16 06:20 Lactic Acid Level 1.3mmol/L (0.4-2.0) Magnesium Level 2.3mg/dL (1.6-2.6) Lipase 55U/L (13-60) Hold Roberta Top Tube Received (Received) Hold Hutchins Top Tube Received (Received) Urine Color Dark yellow (YELLOW) Urine Appearance Clear (CLEAR,HAZY) Urine pH 7.0 (5.0-8.0) Urine Specific Monument 1.010 (1.003-1.035) Urine Protein Tracemg/dL (NEG,TRACE) Urine Glucose (UA) Negativemg/dL (NEGATIVE) Urine Ketones Negativemg/dL (NEGATIVE) Urine Occult Blood Negative (NEGATIVE) Urine Nitrite Negative (NEGATIVE) Urine Bilirubin Negative (NEGATIVE) Urine Urobilinogen Normalmg/dL (NORMAL) Urine Leukocyte Esterase Negative (NEGATIVE) Urine RBC 0-2/hpf (0-2) Urine WBC 0-5/hpf (0-5) Urine Epithelial Cells Occasional/hpf (NONE-MOD) Urine Crystals None seen (NONE SEEN) Urine Bacteria None/hpf (NONE-FEW) Urine Hyaline Casts None/lpf (NONE) Urine Granular Casts None seen (NONE SEEN) Urine Waxy Casts None seen (NONE SEEN) Urine Red Blood Cell Casts None seen (NONE SEEN) Urine White Blood Cell Casts None seen (NONE SEEN) Urine Mucus Present (None Seen) Urine Trichomonas None seen (NONE SEEN) Urine Yeast None (NONE SEEN) Urinalysis Comment None Urine Culture Reflexed Not indicated Sodium Level 137mEq/L (134-144) Potassium Level 4.1mEq/L (3.5-5.2) Chloride Level 101mEq/L (97-108) Carbon Dioxide Level 26mmol/L (18-29) Blood Urea Nitrogen 7mg/dL (8-27) Creatinine 0.81mg/dL (0.76-1.27) Estimat Glomerular Filtration Rate 101mL/min (>59) Glucose Level 112mg/dL (60-99) Calcium Level 8.8mg/dL (8.5-10.1) Total Bilirubin 0.3mg/dL (0.0-1.2) Aspartate Amino Transf (AST/SGOT) 19U/L (0-50) Alanine Aminotransferase (ALT/SGPT) 13U/L (0-44) Alkaline Phosphatase 93U/L (25-160) Total Protein 7.1g/dL (6.4-8.4) Albumin 3.2g/dL (3.4-5.0) Test 11/16/16 07:30 White Blood Count 2.5th/mm3 (3.8-10.1) Red Blood Count 3.93mil/mm3 (4.40-5.80) Hemoglobin 12.6g/dL (13.8-17.2) Hematocrit 37.4% (41.0-50.0) Mean Corpuscular Volume 95.2fL (81-100) Mean Corpuscular Hemoglobin 32.1pg (27.0-35.0) Mean Corpuscular Hemoglobin Concent 33.7% (32.0-37.0) Red Cell Distribution Width 14.4% (12.3-15.4) Platelet Count 91bil/L (150-400) Neutrophils (%) (Auto) 39.6% (40-74) Lymphocytes (%) (Auto) 47.2% (14-46) Monocytes (%) (Auto) 10.8% (4-12) Eosinophils (%) (Auto) 2.4% (0-5) Basophils (%) (Auto) 0% (0-3) Discharge Medications Discharge Medications Alprazolam (Xanax) 1 Mg Tablet 1 MG PO TID (Reported) Alprazolam (Xanax) 2 Mg Tablet 2 MG PO HS (Reported) Aspirin Chew (Aspirin Chew) 81 Mg Chew 81 MG PO QAM (Reported) Cetirizine HCl (Zyrtec) 10 Mg Capsule 10 MG PO MORNING (Reported) Cyanocobalamin (Vitamin B12) 1,000 Mcg Tablet 1,000 MCG PO MORNING (Reported) Dronabinol (Dronabinol) 2.5 Mg Capsule 2.5 MG PO BIDWM (Reported) Fluoxetine (Prozac) 20 Mg Capsule 20 MG PO DAILY (Reported) Fluoxetine (Prozac) 40 Mg Capsule 40 MG PO HS (Reported) Guaifenesin (Guaifenesin ER) 600 Mg Tab.er.12h 600 MG PO DAILY (Reported) Multivitamin (Multi Vitamin Daily) 1 Each Tablet 1 EACH PO DAILY (Reported) Omeprazole (Omeprazole) 20 Mg Capsule.dr 20 MG PO QAM (Reported) Oxycodone ER (Oxycontin) 80 Mg Tab.er.12h 80 MG PO BID (Reported) oxyCODONE-Acetaminophen 5-325 mg (oxyCODONE-Acetaminophen 5-325 mg) 1 Each Tablet 1 TABLET PO TID (Reported) 0600, 1200, 1800. 1 TABLET TID AND 2 AT HS. oxyCODONE-Acetaminophen 5-325 mg (oxyCODONE-Acetaminophen 5-325 mg) 1 Each Tablet 2 TAB PO HS (Reported) TAKE 1 TABLET PO TID AND 2 TABLETS AT HS. TAKES AT MIDNIGHT. As needed Paregoric (Paregoric) 2 Mg/5 Ml Liquid 6 MG PO QID PRN PRN For Diarrhea or Loose Stool (Reported) Prochlorperazine Maleate (Compazine) 10 Mg Tablet 10 MG PO QID PRN PRN For Nausea (Reported) Followup Plan Discharge Diet: Other (Diet with fiber, low salt) Discharge Activity: No restrictions Patient Instructions Please follow up with GI in 2 weeks Please follow up with PCP in 2 weeks Kenyetta Germain DO Nov 16, 2016 12:40
--- NOTE | 2016-11-16 13:46 | NUR ---
DISCHARGE Reviewed discharge paperwork with patient, including follow up with GI in 2 weeks, gave information for GI at [facility] and to follow up with PCP. Included information on what tests were still pending in the lab. Patient states his abdominal pain is feeling much better than when he came into hospital. Advised to gradually advance diet. L chest portacath was de accessed by IV therapy. Got dressed independently. Packed all personal belongings and is waiting for ride to arrive.
[2016-11-16] MEDS ORDERED: fentaNYL-PF 50 mCg/mL 2 mL Inj ONE (13:54)
[2016-11-16] MEDS ORDERED: Propofol 10,000 mCg/mL 20 mL Inj ONE (13:54)
--- NOTE | 2016-11-16 20:11 | ENDO ---
[address] [address] ENDOSCOPY PROCEDURE PATIENT: ELIO GARCIA : 1950 MR#: [id number] ADMIT: 11/14/2016 JOB ID: [id number] TYPE OF OPERATION: Colonoscopy, biopsy. PREOPERATIVE DIAGNOSIS(ES): Abnormal computed tomography scan. POSTOPERATIVE DIAGNOSIS(ES): Mild erythema with ulcerations at 30 cm at the sigmoid colon. Status post biopsy. ANESTHESIA: Monitored anesthesia care. COMPLICATIONS: None. BLOOD LOSS: Minimal. DESCRIPTION OF PROCEDURE: After risks and benefits explained to the patient, informed consent was obtained. After anesthesia administered, colonoscope was inserted from the rectum to the cecum. Mucosa carefully examined. Prep of the patient was excellent. After procedure was done, the scope withdrawn, procedure terminated. FINDINGS: Upon inspection of the anus, no masses, hemorrhoids, ulcers, fissures that were seen. Throughout the entire examination, there is mild erythema with ulcerations seen at 30 cm from the anus in a linear fashion, which was biopsied. The rest of the colonoscopy was normal. Retroflexion was normal. No polyps or masses were seen. IMPRESSIONS: Mild erythema with ulcerations seen at 30 cm from the anus in a linear fashion, status post biopsy. RECOMMENDATIONS: 1. Await pathology results. 2. Okay to start clear liquid diet.
--- NOTE | 2016-11-18 14:05 | PATH ---
SURGICAL PATHOLOGY Attending Physician:Troy Dee MD CASE STATUS: Signed Out PATIENT NAME: ELIO GARCIA PID: [id number] : 1950 DATE COLLECTED:11/16/2016 00:00 SPECIMEN: Colon, Biopsy CLINICAL HISTORY: COLON WALL THICKENING, ERYTHEMA OF COLON 1). SIGMOID COLON BIOPSY FINAL DIAGNOSIS: 1.SIGMOID COLON BIOPSY: COLONIC MUCOSA WITH FIBRINOPURULENT EXUDATE CONSISTENT WITH ULCERATION. NEGATIVE FOR CHRONIC COLITIS. NEGATIVE FOR DYSPLASIA AND MALIGNANCY. ICD10 CODE K52.9 GROSS DESCRIPTION: The specimen is received in one formalin filled container labeled with the patient's name, sublabeled "A0 0.5 x 0.2 x 0.2 CM portion of tissue which is entirely submitted in one cassette. 11/17/2016 [facility] MICRO DESCRIPTION: See diagnosis. ICD-9 CODES: CPT CODES: 1: 85785 Electronically Signed Out Angelina Zarate MD [facility] Pathology [facility] [address], [place] [address] Technical component performed at [facility], [address] [place] [address] Ave[address], [place], [address]
== END 2016-11-16 13:55 | disposition home or self-care (01) | DRG 392 ==
LOC: SED 15:08 → OSC 19:16
PROVIDERS: ADMIT Urology; ATTEND Urology
PROC: 0DBE8ZX Excision of Large Intestine, Via Natural or Artificial Opening Endoscopic, Diagnostic (ICD-10-PCS; principal; 2016-11-16 09:00)
DX: A09 Infectious gastroenteritis and colitis, unspecified (principal); K56.69 Other intestinal obstruction; D47.Z2 Castleman disease; C83.00 Small cell B-cell lymphoma, unspecified site; D80.1 Nonfamilial hypogammaglobulinemia; K55.9 Vascular disorder of intestine, unspecified; R10.32 Left lower quadrant pain; Z79.82 Long term (current) use of aspirin; Z87.891 Personal history of nicotine dependence; D69.6 Thrombocytopenia, unspecified; Z66 Do not resuscitate; I10 Essential (primary) hypertension; G89.4 Chronic pain syndrome; F41.9 Anxiety disorder, unspecified

== ENCOUNTER 2017-02-10 12:36 | Inpatient (IN) | payer MEDICARE, OTHER ==
[2017-02-10] VITALS (8 sets, daily range): BP systolic 120–165; BP diastolic 73–90; PULSE 64–86; RESP 13–18; O2SAT 96–99
[~2017-02-10] VITALS: Ht 167.6 cm; Wt 106.7 kg
[~2017-02-10 12:36] MED LIST changes: -ALPR0.5T8 PO; +ALPR2TAB2 PO; +DRON2.5C10 PO; +GUAI600T86 PO; -METO10TA3 PO; +OMEP20CA11 PO; -OXYC40TA53 PO; +OXYC80TA PO; -PRAZ2CAP2 PO; +PROZ20 PO; -TAM75UDCAP PO
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
[2017-02-10 13:08] LABS: BASOPHILS % (AUTO) 0 % (0-3); Mean Corpuscular Hemoglobin 31.5 pg (27.0-35.0)
[2017-02-10 13:14] LABS: EOSINOPHILS % (AUTO) 0 % (0-5); MONOCYTES % (AUTO) 12.4 % (4-12); Mean Corpuscular Volume 94.2 fL (81-100); NEUTROPHILS % (AUTO) 54.4 % (40-74); Platelet Count 92 bil/L (150-400)
[2017-02-10 13:42] LABS: TROPONIN T < 0.010 ug/L (0.0-0.011)
[2017-02-10 13:47] LABS: Magnesium 1.8 mg/dL (1.6-2.6)
--- NOTE | 2017-02-10 14:28 | DRSVH ---
PROCEDURE: X-RAY CHEST ONE VIEW, PORTABLE ([id number]) INDICATIONS: Chest pain. TECHNIQUE: One view of the chest was acquired. COMPARISON: [facility], CR, XR CHEST 2VW, 10/01/2016, 11:05. FINDINGS: Surgical changes and devices: A left-sided Port-A-Cath central line is identified with the tip overly ing the high superior vena cava. Postoperative changes within the axilla and gastroesophageal juncti on region are noted. Lungs and pleura: No pleural effusions or pneumothorax. Lungs are clear. Mediastinum: Mediastinal contours appear normal. Heart size is normal. Bones and chest wall: No suspicious bony lesions. Overlying soft tissues appear unremarkable. IMPRESSION: Stable chest. No acute cardiopulmonary process is evident. Dictated by: Abraham Monsalve M.D. on 02/10/2017 at 13:26 Approved by: Abraham Monsalve M.D. on 02/10/2017 at 13:26
--- NOTE | 2017-02-10 15:17 | DRSVH ---
PROCEDURE: CT ANGIO CHEST PULMONARY EMBOLISM ([id number]) INDICATIONS: chest pain, malignancy TECHNIQUE: After the administration of intravenous contrast, 2 mm thick sections acquired from the pulmonary api corey to the posterior costophrenic angles. 3-dimensional maximum intensity projection (MIP) coronal a nd sagittal reformats were then acquired through the thorax. For radiation dose reduction, the follo wing was used: automated exposure control, adjustment of mA and/or kV according to patient size. COMPARISON: [facility], CT, CT CHEST ABD PELVIS W CON, 09/30/2016, 9:47. [facility], CT, CHEST WITH CONTRAST, 06/21/2013, 21:17. FINDINGS: Image quality: Diagnostic. Pulmonary arteries: Pulmonary arteries are normal in size, and demonstrate no intraluminal filling d efects to suggest central pulmonary embolism. Lungs and pleura: Evaluation of the lungs is difficult given respiratory motion/suboptimal pulmonary expansion. However, no lobar consolidation, effusion, or pneumothorax is identified. There is mild posterior atelectasis within the lungs. No lung masses evident. No definite pulmonary nodules are a ppreciated. Mediastinum: The heart is enlarged without a pericardial effusion. Coronary artery atherosclerosis i s present. No mediastinal or hilar adenopathy. Thoracic aorta is normal in caliber and enhancement. Esophagus is normal in caliber, without hiatal hernia. A right-sided Port-A-Cath central line is i dentified with the tip positioned within the superior vena cava. Bones and chest wall: No suspicious bony lesions. Ribs and thoracic spine appear intact throughout. Thyroid gland is not enlarged. Mildly enlarged axillary lymph nodes are again identified. The lar gest measures up to approximately 1.2 cm in transverse dimension, previously measuring approximately the same when remeasured in a similar configuration (image 29, series 4). Abdomen: The imaged portions of the upper abdomen are similar to the prior exams. The spleen is enla rged. IMPRESSION: 1. No pulmonary emboli. 2. Unchanged prominent left axillary lymph nodes. 3. Enlarged spleen. 4. No pneumonia or acute pulmonary process is evident. There is mild dependent atelectasis. 5. Enlarged heart. The possibility of mild pulmonary edema is difficult to exclude. Dictated by: Abraham Monsalve M.D. on 02/10/2017 at 14:11 Approved by: Abraham Monsalve M.D. on 02/10/2017 at 14:16
[2017-02-10] MEDS ORDERED: oxyCODONE-Acetamin 5-325 mg Tablet PO ONE (16:00)
[2017-02-10] MEDS ORDERED: Alum-Mag Hydrox-Simeth 30 mL Suspension PO PRN (16:35)
[2017-02-10] MEDS ORDERED: Ondansetron 2 mg/mL 2 mL Inj IVPUSH PRN (16:35)
[2017-02-10] MEDS ORDERED: Polyethylene Glycol (PEG) 17 Gm Powder PO PRN (16:35)
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
[2017-02-10] MEDS ORDERED: MIRT30TA6 PO (17:08)
[2017-02-10] MEDS ORDERED: IMMU20VI IV (17:08)
[2017-02-10] MEDS: 0.9% Sodium Chloride 250 ML IV SCH (17:16)
[2017-02-10] MEDS ORDERED: HepLOK Flush 100 unit/mL 5 mL Inj IVFLUSH PRN (17:20)
[2017-02-10] MEDS ORDERED: Sodium Chloride LOK Flush 10 mL Syringe IVFLUSH PRN ×2 (17:20)
--- NOTE | 2017-02-10 18:57 | NUR ---
Case Management: CASEY explained to patient at 1845, all questions answered. Pt daughter came in mid-way through conversation and instructed pt to have the VA as primary, not Medicare. I left a voice message with Social Work to clarify in am. I also provided the Medicare Part D Drug information. Silvina Moore RN
--- NOTE | 2017-02-10 19:16 | NUR ---
Admit note- Received patient from Emergency dept. Alert and oriented. Patient complaining of 7/10 midsternal chest pain that has not changed or resolved since before arrival to ER. Denies shortness of breath. Oriented to room, call light, tele, etc.
[2017-02-10] MEDS: oxyCODONE-Acetamin 5-325 mg Tablet PO SCH (20:19)
[2017-02-10] MEDS: oxyCODONE ER 40 mg ER12 Tablet PO SCH (23:50)
[2017-02-11] VITALS (9 sets, daily range): BP systolic 125–178; BP diastolic 74–109; PULSE 67–82; RESP 16–19; O2SAT 94–100
[2017-02-11] MEDS ORDERED: Nitroglycerin 2% 1 Gm Ointment TOPICAL ONE (03:55)
[2017-02-11] MEDS: oxyCODONE-Acetamin 5-325 mg Tablet PO SCH ×4 (05:11→23:04)
[2017-02-11 05:28] LABS: BASOPHILS % (AUTO) 0 % (0-3); MONOCYTES % (AUTO) 14.8 % (4-12); Mean Corpuscular Hemoglobin 31.6 pg (27.0-35.0); Mean Corpuscular Volume 95.2 fL (81-100); NEUTROPHILS % (AUTO) 47.1 % (40-74); Platelet Count 90 bil/L (150-400)
--- NOTE | 2017-02-11 05:54 | NUR ---
Pain: pt continues to have chest pain 03/02. Vital signs stable, and as documented. NPO for stress test in am. order for nitro paste, but didn't change pt's chest pain, but pt c/o headache. nitro paste removed at 0515. will continue to monitor.
[2017-02-11 06:10] LABS: Magnesium 1.8 mg/dL (1.6-2.6)
[2017-02-11] MEDS: oxyCODONE ER 40 mg ER12 Tablet PO SCH ×2 (08:04→21:24)
[2017-02-11] MEDS ORDERED: OPIUM PO PRN (09:20)
--- NOTE | 2017-02-11 09:24 | NUR ---
Social Work-initial assessment/ readiness for discharge: Data:See initial assessment. Pt is a 66 y/o male who was admitted on 02/10/17 for chest pain per H&P. Pt's insurance is [facility] and PCP is Jaimee Mott MD. EMR reviewed. Pt's readmission score is 5-high risk. SW met with pt at bedside, SW role explained. Pt is alert and oriented x3. Pt resides at home alone in [place] where he remains independent with ADLs. Pt drives and does not use any DME. Pt has no HH or SNF history. 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 Pt has completed DPOA/ advanced directive paperwork, SW encouraged a copy to be brought in. SW received a message from [facility] stating pt may want to use VA. SW spoke with pt about this and he states he would like to use his VA benefits while in the hospital. ERIC updated [facility] specialist who will inform registration. Pt has been up independent in his room. Pt's family to provide transport home at discharge. SW provided phone number and plan on white board in room. No anticipated discharge needs. SW will continue to follow if needs arise. Assessment:Pt who is independent at baseline. Plan:Pt to discharge home when medically stable via POV. No anticipated discharge needs. SW will continue to follow if needs arise. FOSTER Quinonez Addendum: 02/11/17 at 0928 by KELY LAVARADO SS Amended: Links added.
--- NOTE | 2017-02-11 10:35 | NUR ---
Spoke with Samira in patient access at [facility] and this patient is 70% service connected and sees Cal Watkins at [facility] here at [facility]. Patient also hold [facility] A B & D NO beds available today. Updated CLEANER
[2017-02-11] MEDS ORDERED: oxyCODONE-Acetamin 5-325 mg Tablet PO SCH (11:30)
--- NOTE | 2017-02-11 17:01 | DRSVH ---
PROCEDURE: 1 DAY TREADMILL STRESS TEST Rest and exercise myocardial perfusion SPECT with gated imaging and ejection fraction RADIOPHARMACEUTICAL: 10.3 mCi Tc-99m tetrafosmin IV at rest and 30.2 mCi Tc-99m tetrafosmin IV at pea k exercise. Yom-ima-unheoqqf was performed. INDICATIONS: 66 year-old man with chest pain. Patient has coronary disease with history of myocardia l infarction and coronary artery stenting in 2010. Evaluate myocardial ischemia. TECHNIQUE: Radiopharmaceutical was injected at peak stress test, and also at rest. SPECT images wer e obtained. SPECT myocardial perfusion images were displayed in short axis, horizontal long axis, an d vertical long axis views. Gated images were reviewed using MeicanQUANT software. COMPARISON: [facility], [place], MYOCARD PERF SPECT SINGLE, 06/18/2013, 10:06. CARDIAC STRESS: A standard Clint treadmill exercise tolerance test was performed by the patient under the supervision of an attending staff. The patient exercised for 8 minutes and 48 seconds; functional aerobic impai rment (RAJAN) is -25 %. Hemodynamic data: There is normal blood pressure and heart rate response to exercise stress. Patien t achieved 95% of maximum predicted heart rate at peak exercise. Symptoms: Patient denied chest pain during exercise. EKG: No diagnostic EKG changes of ischemia; no ectopy. FINDINGS: Raw data: There is good myocardial labeling by radiotracer. No significant motion artifacts. Left ventricle function: Gated images demonstrate normal left ventricle wall thickening. No segment al wall motion abnormality. No transient ischemic dilation. The left ventricle resting end-diastolic volume is normal. Left ventricle stress ejection fraction is 60%; normal values are above 45%. Myocardial perfusion: There is a medium-sized, rmjf-ju-nikpwfjihr severe, partially reversible perfu marlon defect in the inferior lateral wall, suspicious for myocardial ischemia. On prone imaging, the d efect has persistent. Comparison prior examinations: Compared with the last admission 06/18/2013, the inferolateral perfusi on defect is new. IMPRESSION: 1. Abnormal myocardial perfusion images. There is a medium-sized, dwcn-mr-amxswmzpmd severe, reversib le perfusion defect in the inferior lateral wall, consistent with myocardial ischemia. 2. Normal left ventricular volume and systolic function. 3. Good exercise capacity. No chest pain or diagnostic EKG changes for ischemia. PQRS ATTESTATIONS: Measure 322 - Is this imaging test primarily performed on a low-risk surgery patient for preoperative evaluation within 30 days preceding their low-risk non-cardiac surgery? Low-risk surgery is defined as cardiac or myocardial infarction less than 1%, including (but not limited to) endoscopic pr ocedures, superficial procedures, cataract surgery, and excisional breast surgery: Answer: No Measure 323 - Is this imaging test performed primarily for the monitoring of an asymptomatic patient who had percutaneous coronary intervention on the visit date or within 2 years of the visit date? An swer: No Measure 324 - Is this imaging test performed primarily for the initial detection and risk assessment on an asymptomatic, low coronary heart disease patient? Low CHD risk definition = clinicians should consider the maximum number of available patient factors used to estimate risk based on [place] (A TP III criteria), typically age, gender, diabetes, smoking status, and use of blood pressure medicati on, and integrate age appropriate estimates for missing elements, such as LDL or standard blood press ure. Answer: No Dictated by: Frida Colvin M.D. on 02/11/2017 at 16:48 Approved by: Frida Colvin M.D. on 02/11/2017 at 16:59
--- NOTE | 2017-02-11 17:31 | DRSVH ---
[facility] [address] [place] [address] Echocardiogram Report Name: ELIO GARCIA CStudy Date: 02/11/2017 Height: 66 in Hospital Exam Location: [facility] Weight: 235 lb Gender: Male BSA: 2.1 m2 : 1950 Age: 66 yrs BP: 135/75 mmHg Reason For Study: Chest pain Ordering Physician: Performed By: Yareli Wallace Referring Physician: Dr. [place] Mott Interpretation Summary The left ventricle is normal in size, wall thickness, and systolic function without any focal wall motion abnormalities. The ejection fraction is estimated to be 60-65%. There are no focal wall motion abnormalities. The right ventricle is normal in size and function. The left atrium is moderately dilated. No other echocardiographic abnormalities seen. No obvious etiology noted for the patients c/o chest pain. Compared to the prior echo report on 09/10/2015, there is no significant change. Procedure: A two-dimensional transthoracic echocardiogram with color flow and Doppler was performed. The study quality was technically adequate. Comparison is made with the echocardiogram of 09-11-15. The patient was in normal sinus rhythm during the exam. Left Ventricle: The left ventricle is normal in size, wall thickness, and systolic function without any focal wall motion abnormalities. The ejection fraction is estimated to be 60-65%. There are no focal wall motion abnormalities. The E/A ratio is reversed with an elevated E/E', suggesting impaired early relaxation of the left ventricle with possible increased filling pressures. Right Ventricle: The right ventricle is normal in size and function. Atria: The left atrium is moderately dilated. Right atrial size is normal. The interatrial septum is intact with no evidence for an atrial septal defect. Mitral Valve: The mitral valve leaflets appear mildly thickened, but open well. There is mild mitral regurgitation. Aortic Valve: The aortic valve is trileaflet. Leaflet mobility is mildly reduced. No aortic regurgitation is present. Tricuspid Valve: The tricuspid valve leaflets are thin and pliable. There is mild tricuspid regurgitation. Pulmonic Valve: The pulmonic valve is normal in structure and function. There is a trace or physiologic amount of pulmonic regurgitation. Great Vessels: The aortic root is mildly dilated. The ascending aorta is mildly enlarged. The inferior vena cava was not visualized. Pericardium/ Pleura There is no pericardial effusion. There is no pleural effusion. MMode/2D Measurements & Calculations LVIDd LA dimension: 4.7 cm RA long axis: 5.8 cm LVOT diam: 2.5 cm : 5.7 cm Ao root diam LVIDs LA A2 area: 31.3 cm RA area: 22.1 cm : 3.1 cm LA A4 area: 34.6 cm RA vol: 71.4 ml Aortic Jxn: 3.1 cm FS: 45.0 % LA length (vol) RA : 33.3 ml/m asc Aorta Diam IVSd: 1.1 cm RVDd major: 5.9 cm LVPWd LA vol: 137.4 ml Ao Arch Diam (Prox : 1.0 cm LA vol index Trans): 3.5 cm : 64.1 ml/m2 MINE (plan) LV nelson. diameter/BSA LV sys. diameter/BSA RVD1 (basal) : 3.1 cm2 (cm/m^2): 2.6 (cm/m^2): 1.5 : 4.5 cm RVD2 (mid) : 5.2 cm Doppler Measurements & Calculations Ao V2 max MV E max juan alberto MV E/A: 0.82 TR max juan alberto : 230.8 cm/sec : 69.8 cm/sec Med Peak E' Juan Alberto : 266.0 cm/sec Ao max PG MV A max juan alberto TR max PG : 21.3 mmHg : 85.3 cm/sec E/E' med: 14.1 : 28.3 mmHg Ao mean PG MV P1/2t: 52.4 msec Lat Peak E' Juan Alberto PA V2 max : 10.2 mmHg : 81.2 cm/sec LVOT Max Juan Alberto E/E' lat: 6.8 PA mean PG : 97.4 cm/sec E/e' average: 10.5 MINE(I,D): 2.3 cm Pulm A Revs Dur PA Accel Time sev ratio : 0.08 sec MV A dur: 0.13 sec MV dec time MV P1/2t max juan alberto Ao V2 mean LV V1 max PG : 0.18 sec : 148.9 cm/sec MVA(P1/2t): 4.2 cm2 Ao V2 VTI: 44.6 cm LV V1 VTI MINE(V,D): 2.1 cm2 : 20.5 cm PA V2 mean MINE indexed to BSA Pulm A Revs Dur - MV A : 48.9 cm/sec (cm^2/m^2): 1.1 Dur: -0.01 msec Reading Physician:05:30 PM
--- NOTE | 2017-02-11 17:55 | PCM.PNMED ---
Subjective Date of Service Feb 11, 2017 Subjective Continues to have chest pain but less frequent and less severe. Continues to be unresponsive to nitrates Exam Vital Signs Vital Sign - Last Date Time Temp Pulse Resp B/P Pulse Ox O2 Delivery O2 Flow Rate FiO2 02/11/17 13:22 36.8 78 16 132/74 96 Room Air 02/10/17 15:06 1 Intake and Output 02/10/17 02/10/17 02/11/17 Cumulative From/Thru 15:00 23:00 07:00 02/10/17 12:39 - 02/11/17 06:12 Intake Total 400 ml 200 ml 600 ml Output Total 650 ml 775 ml 1425 ml Balance -250 ml -575 ml -825 ml Intake Oral 400 ml 200 ml 600 ml Output Urine Total 650 ml 775 ml 1425 ml Exam Gen. patient is lying comfortably in hospital bed HEENT: Head is normocephalic atraumatic, Pupils equal and reactive, extraocular movements intact, Lungs clear to auscultation bilaterally Heart regular rate and rhythm without murmurs gallops or rubs Abdomen soft nontender without hepatosplenomegaly Extremities pulses are present dorsalis pedis posterior tibialis and radial. tSkin is warm and dry there are no rashes, Psych alert and oriented to person place and time Neuro cranial nerves II through XII are grossly intact Lymph: There is no lymphadenopathy appreciated in the cervical supra infraclavicular regions : no aguayo IVs and Medications Medications Reviewed: Medications were reviewed in detail Lab and Diagnostics Result Diagram: 02/11/17 0515 02/11/17 0515 Cardiac Echo Impressions The left ventricle is normal in size, wall thickness, and systolic function without any focal wall motion abnormalities. The ejection fraction is estimated to be 60-65%. There are no focal wall motion abnormalities. The right ventricle is normal in size and function. The left atrium is moderately dilated. No other echocardiographic abnormalities seen. No obvious etiology noted for the patients c/o chest pain. Compared to the prior echo report on 09/10/2015, there is no significant change. Additional Diagnostics PROCEDURE: 1 DAY TREADMILL STRESS TEST Rest and exercise myocardial perfusion SPECT with gated imaging and ejection fraction RADIOPHARMACEUTICAL: 10.3 mCi Tc-99m tetrafosmin IV at rest and 30.2 mCi Tc-99m tetrafosmin IV at peak exercise. Mmg-kbe-[id number] was performed. INDICATIONS: 66 year-old man with chest pain. Patient has coronary disease with history of myocardial infarction and coronary artery stenting in 2010. Evaluate myocardial ischemia. IMPRESSION: 1. Abnormal myocardial perfusion images. There is a medium-sized, mild-to- moderately severe, reversible perfusion defect in the inferior lateral wall, consistent with myocardial ischemia. 2. Normal left ventricular volume and systolic function. 3. Good exercise capacity. No chest pain or diagnostic EKG changes for ischemia. PQRS ATTESTATIONS: Measure 322 - Is this imaging test primarily performed on a low-risk surgery patient for preoperative evaluation within 30 days preceding their low-risk non- cardiac surgery? Low-risk surgery is defined as cardiac or myocardial infarction less than 1%, including (but not limited to) endoscopic procedures, superficial procedures, cataract surgery, and excisional breast surgery: Answer : No Measure 323 - Is this imaging test performed primarily for the monitoring of an asymptomatic patient who had percutaneous coronary intervention on the visit date or within 2 years of the visit date? Answer: No Measure 324 - Is this imaging test performed primarily for the initial detection and risk assessment on an asymptomatic, low coronary heart disease patient? Low CHD risk definition = clinicians should consider the maximum number of available patient factors used to estimate risk based on Melber ( ATP III criteria), typically age, gender, diabetes, smoking status, and use of blood pressure medication, and integrate age appropriate estimates for missing elements, such as LDL or standard blood pressure. Answer: No Dictated by: Frida Colvin M.D. on 02/11/2017 at 16:48 Assessment & Plan 66-year-old gentleman with past medical history of PA status post stent in 2010 , history of stage IV lymphoplasmacytic lymphoma, chronic hypogammaglobulinemia on monthly IVIG, hypertension, hyperlipidemia came to emergency room due to chest pain of 12 hrs. # Chest pain due to CAD -Symptom consistent with cardiac chest pain but EKG negative 2, troponin negative, . Chest pain unresponsive to nitrate -CTA negative for PE -Telemetry -Morphine for pain control -Echocardiogram unremarkable as above - stress test medium-sized, mpre-wa-fvtjvslbvl severe, reversible perfusion defect in the inferior lateral wall, consistent with myocardial ischemia. -Consulted cardiology. Keep nothing by mouth after midnight in case cardiac cath is decided -will start metoprolol low-dose. Started statin. Continue aspirin # History of lymphoma,hypogammaglobulinemia on monthly IVIG -Dr. Siu oncologist outpatient Observation status, changed to inpatient Full code Resuscitation Status: CPR: Attempt Resuscitation Baldomero Spencer MD Feb 11, 2017 17:55
--- NOTE | 2017-02-11 18:45 | NUR ---
Case Management: COS to Inpatient. IMM explained to patient at 1835, all questions answered. Signed original placed in chart, copy given to patient. Silvina Moore RN
[2017-02-11] MEDS: 0.9% Sodium Chloride 250 ML IV SCH (19:13)
[2017-02-11] MEDS ORDERED: oxyCODONE ER 80 mg ER12 Tablet PO SCH (20:30)
--- NOTE | 2017-02-11 21:34 | PCM.CHPCAR ---
Consult Subjective Date of service Feb 11, 2017 Date of admit Feb 10, 2017 at 16:33 Provider Requesting Consult Primary Care Physician Primary Care Physician: Jaimee Mott MD Chief Complaint chest pain History of Present Illness This is a 66-year-old male with history of coronary artery disease and the patient had a drug eluting stent into his LAD.The patient never followed up with the supervisor costuming. The patient was admitted yesterday for chest pain that was intermittent and that started around 4 o'clock in the morning. The patient decided to present to the emergency room. His serial troponins were negative. EKG was unremarkable. The patient had a echocardiogram which showed normal LV wall motion and normal LV about your fraction. He also recently went for a treadmill sestamibi which showed no evidence of significant ischemia based on my personal review but showed evidence of infarct in the inferolateral wall. There's no evidence of ischemia. The patient has been stable over the past 6 hours. Review of Systems General: Denies: Energy Fatigue Ears, Nose, Mouth & Throat: Denies: Any hearing loss Respiratory: Denies: Orthopnea or PND Cardiovascular: Reports: Atypical chest discomfort Lightheadedness Palpitations Gastrointestinal: Denies: Ulcers or GI blood loss Hematologic/Immunologic: Reports: Recent history of anemia PMH Past Medical History 1. Hypertension. 2. Dyslipidemia. 3. Coronary artery disease. Cardiac catheterization (August 21, 2011) showed normal left main; 90% proximal LAD stenosis; normal circumflex distribution; normal RCA distribution; LVEF 60%. The patient underwent angioplasty with placement of a Xience drug-eluting stent in the proximal LAD. 4. 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 5. 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 On monthly IVIG for hypogammaglobulinemia. 6. Gram-negative sepsis (June 19, 2013). One of two blood cultures yielded Stenotrophomonas maltophilia; a four week course of Levaquin was prescribed), ended July 19, 2013). 7. Influenza A (August 15, 2013). 8. Recurrent shingles. 9. anxiety 10. Depression 11. Hospital admission 10/23/2015-10/29/2015 for metapneumovirus community acquired pneumonia. 12. Neuropathy 13. Chronic back pain September 2016 note indicates oxycodone ER 40 mg every 8, and ox Bedside Blood Glucose: 111 Scheduled Alprazolam (Xanax) 1 Mg Tablet 1 MG PO TIDWM (Reported) Alprazolam (Xanax) 2 Mg Tablet 2 MG PO HS (Reported) Aspirin Chew (Aspirin Chew) 81 Mg Chew 81 MG PO QAM (Reported) Cetirizine HCl (Zyrtec) 10 Mg Capsule 10 MG PO MORNING (Reported) Cyanocobalamin (Vitamin B12) 1,000 Mcg Tablet 1,000 MCG PO MORNING (Reported) Fluoxetine (Prozac) 20 Mg Capsule 20 MG PO BID (Reported) Guaifenesin (Guaifenesin ER) 600 Mg Tab.er.12h 600 MG PO DAILY (Reported) Immune Glob,Harper Caprylate(IgG) (Gamunex-C) 20 Gm/200 Ml Vial 20 GM IV MONTHLY ( Reported) Mirtazapine (Mirtazapine) 30 Mg Tablet 30 MG PO HS (Reported) Multivitamin (Multi Vitamin Daily) 1 Each Tablet 1 EACH PO DAILY (Reported) Omeprazole (Omeprazole) 20 Mg Capsule.dr 20 MG PO BIDAC (Reported) Oxycodone ER (Oxycontin) 80 Mg Tab.er.12h 80 MG PO BID (Reported) oxyCODONE-Acetaminophen 5-325 mg (oxyCODONE-Acetaminophen 5-325 mg) 1 Each Tablet 1-2 TABLET PO QID (Reported) 0600, 1200, 1800. 1 TABLET TID AND 2 AT HS. Scheduled PRN Paregoric (Paregoric) 2 Mg/5 Ml Liquid 6 MG PO QID PRN PRN DUMPING SYNDROME ( Reported) Discontinued Medications Dronabinol (Dronabinol) 2.5 Mg Capsule 2.5 MG PO BIDWM (Reported) Fluoxetine (Prozac) 40 Mg Capsule 40 MG PO HS (Reported) Prochlorperazine Maleate (Compazine) 10 Mg Tablet 10 MG PO QID PRN PRN For Nausea (Reported) oxyCODONE-Acetaminophen 5-325 mg (oxyCODONE-Acetaminophen 5-325 mg) 1 Each Tablet 2 TAB PO HS (Reported) TAKE 1 TABLET PO TID AND 2 TABLETS AT HS. TAKES AT MIDNIGHT. Current Inpatient Medications Current Medications Nitroglycerin 0.4 mg Q5MIN PRN SL Last administered on 02/10/17 15:10; Admin Dose 0.4 MG; Start 02/10/17 at 13:30 Al Hydrox/Mg Hydrox/Simethicone 30 ml Q6H PRN PO; Start 02/10/17 at 16:35 Ondansetron HCl 4 to 8 mg Q4H PRN IVPUSH; Start 02/10/17 at 16:35 Senna 17.2 mg BID PRN PO; Start 02/10/17 at 16:35 Polyethylene Glycol 17 gm DAILY PRN PO; Start 02/10/17 at 16:35 Atorvastatin Calcium 20 mg 20 mg HS PO Last administered on 02/10/17 20:17; Admin Dose 20 MG; Start 02/10/17 at 21:00 Sodium Chloride 250 ml @ 10 mls/hr Q24H IV Last administered on 02/11/17 19:13 ; Admin Dose 10 MLS/HR; Start 02/10/17 at 17:16 Alprazolam 1 mg DAILY@,,18 PO Last administered on 02/11/17 19:11; Admin Dose 1 MG; Start 02/11/17 at 06:00 Alprazolam 2 mg HS PO Last administered on 02/10/17 20:17; Admin Dose 2 MG; Start 02/10/17 at 21:00 Oxycodone HCl 80 mg DAILY@ PO Last administered on 02/11/17 08:04; Admin Dose 80 MG; Start 02/10/17 at 21:00 Oxycodone/ Acetaminophen 1 tab DAILY@,12,18 PO Last administered on 02/11/17 19:13; Admin Dose 1 TAB; Start 02/11/17 at 06:00 Fluoxetine HCl 20 mg BID PO Last administered on 02/11/17 08:04; Admin Dose 20 MG; Start 02/10/17 at 20:30 Prochlorperazine 10 mg Q6H PRN PO; Start 02/10/17 at 19:30 Oxycodone/ Acetaminophen 2 tab HS PO Last administered on 02/10/17 20:19; Admin Dose 2 TAB; Start 02/10/17 at 21:00 Alprazolam 1 mg TIDWM PO; Start 02/11/17 at 12:00; Status UNV Aspirin 81 mg DAILY PO Last administered on 6/21/17at 10:51; Admin Dose 81 MG; Start 02/11/17 at 09:20 Cyanocobalamin 1,000 mcg MORNING PO; Start 02/12/17 at 08:30 Guaifenesin 600 mg DAILY PO; Start 02/12/17 at 08:30 Oxycodone HCl 80 mg BID PO; Start 02/11/17 at 20:30; Status UNV Oxycodone/ Acetaminophen 1 tab QID PO; Start 02/11/17 at 11:30; Status UNV Paregoric 6 mg QID PRN PO; Start 02/11/17 at 09:20; Status UNV Non-Formulary Medication 2 mg HS PO; Start 02/11/17 at 21:00; Status UNV Loratadine 10 mg DAILY PO; Start 02/12/17 at 08:30 Mirtazapine 30 mg HS PO; Start 02/11/17 at 21:00 Prenat Multivit/ [place]/Iron/Folic Ac 1 tablet DAILY PO; Start 02/12/17 at 08:30 Pantoprazole 20 mg 0630 PO; Start 02/12/17 at 06:30 Metoprolol Tartrate 12.5 mg BID PO; Start 02/11/17 at 20:30 Allergies: Coded Allergies: Penicillins (Verified Allergy, Severe, itch, burn, breakout, face swelling , 02/10/17) scopolamine (Verified Allergy, Unknown, UNKNOWN, 02/10/17) sulfamethoxazole (Verified Allergy, Unknown, UNKNOWN, 02/10/17) trimethoprim (Verified Allergy, Unknown, UNKNOWN, 02/10/17) gabapentin (Verified Adverse Reaction, Severe, INCREASING SEDATION, ) hydrocodone (Verified Adverse Reaction, Intermediate, N/V, 02/10/17) morphine (Verified Adverse Reaction, Intermediate, Hallucinations, 02/10/17 ) Pt. states he has had it whithout having hallucinations promethazine (Verified Adverse Reaction, Intermediate, TWITCHING FOR SEVERAL DAYS, 02/10/17) Uncoded Allergies: silk sutures (Allergy, Severe, body rejected, became infected, 08/02/12) Family History Family History Sister of brain cancer Father at age 91 due to heart problems. Had CABG Mother at age 87 due to unknown medical issues. Social History Hx Alcohol Use: NoHx Substance Use: NoHx Tobacco Use: Yes (smoked for 10yrs, pack/day, quit 37yrs ago) Smoking Status: Former Smoker Exam Vital Signs Vital Sign - Last Date Time Temp Pulse Resp B/P Pulse Ox O2 Delivery O2 Flow Rate FiO2 02/11/17 20:58 36.4 82 18 178/109 100 Room Air 02/10/17 15:06 1 Intake and Output 02/10/17 02/10/17 02/11/17 Cumulative From/Thru 15:00 23:00 07:00 02/10/17 12:39 - 02/11/17 06:12 Intake Total 400 ml 200 ml 600 ml Output Total 650 ml 775 ml 1425 ml Balance -250 ml -575 ml -825 ml Intake Oral 400 ml 200 ml 600 ml Output Urine Total 650 ml 775 ml 1425 ml General: Pleasant Cooperative Skin: Warm & dry to touch Head: Normocephalic Eye: EOMS intact Neck: No JVD Chest: Clear auscultation w/o rales/wheeze Cardiac: Regular rhythm Pulses: Pulses full/equal all extremities Lab and Diagnostics Result Diagram: 02/11/1751402/11/1715 Assessment & Plan Problems: (1) Non-cardiac chest pain Plan: Patient's chest pain is unlikely angina since he did not experience any chest pain during high workload stress.. Patient stress test is the low risk study given the fact there's no evidence of significant ischemia. I am not overly confident even stating that he has had an infarct in the inferolateral wall since his echocardiogram did not show any focal wall motion abnormalities. The patient should be discharged on aspirin, Beta Blockers and statins for risk factor modification. He should follow up at our cardiology clinic since he is never established with a supervisor costuming after his acute coronary syndrome. Patient may be discharged home. Status: Acute ICD Code: R07.89 (2) CAD (coronary artery disease) Qualifiers: Coronary Disease-Associated Artery/Lesion type: [place] artery [place] vs. transplanted heart: [place] heart Associated angina: without angina Qualified Code: I25.10 - Atherosclerotic heart disease of [place] coronary artery without angina pectoris Status: Acute ICD Code: I25.10 Resuscitation Status: CPR: Attempt Resuscitation Time spent 50 minutes Jared Hayes MD Feb 11, 2017 21:34
[2017-02-12 01:00] VITALS: BP 135/85; PULSE 70; RESP 18; O2SAT 97
[2017-02-12 05:00] VITALS: BP 127/87; PULSE 74; RESP 18; O2SAT 95
[2017-02-12] MEDS: oxyCODONE-Acetamin 5-325 mg Tablet PO SCH (05:45)
[2017-02-12 06:06] VITALS: PULSE 79
--- NOTE | 2017-02-12 06:11 | NUR ---
PAIN Pt has rec'd scheduled pain medication throughout shift. Pts pain primarily in chest, and pt also c/o generalized joint pain. Pt has rated pain "5-6". Pt has stated some relief, never reports pain-free. Pt has been observed to be sleeping, w/out s/sx of discomfort. Continue to monitor. Call light in reach. Intentional rounding.
[2017-02-12] MEDS ORDERED: Pantoprazole 20 mg ER24 Tablet PO SCH (06:30)
[2017-02-12 07:55] VITALS: BP 129/70; PULSE 62; RESP 20; O2SAT 94
[2017-02-12] MEDS ORDERED: guaiFENesin 600 mg ER12 Tablet PO SCH (08:30)
[2017-02-12] MEDS ORDERED: Multivit-Miner-Folic Acid-Iron Tablet PO SCH (08:30)
[2017-02-12] MEDS: oxyCODONE ER 40 mg ER12 Tablet PO SCH (09:13)
[2017-02-12 09:19] VITALS: PULSE 78
--- NOTE | 2017-02-12 10:47 | NUR ---
Social Work: Readiness for Discharge D: EMR reviewed. Pt is on day 2 of hospitalization. Pt's family to provide transport home at discharge. SW provided phone number and plan on white board in room. No anticipated discharge needs. SW will continue to follow if needs arise. A:Pt who is independent at baseline. P:Pt to discharge home when medically stable via POV. No anticipated discharge needs. SW will continue to follow if needs arise. FOSTER Lamas
--- NOTE | 2017-02-12 11:07 | PCM.DIMED ---
Discharge Instructions Date of Service Feb 12, 2017 Dates of Hospitalization Feb 10, 2017 at 16:33 Discharge Diagnosis Discharge Diagnosis # Chest pain ACS ruled out # history of CAD s/p stent # History of lymphoma,hypogammaglobulinemia on monthly IVIG Diet Discharge Diet: Low fat, Low Sodium, Heart Healthy Activity Discharge Activity: Limited until seen by PCP Call your provider Call your provider for: Fever or Chills, Shortness of breath, Bleeding, Chest pain, Vomitting, Excessive diarrhea, Weakness (unilateral) Patient Instructions Patient Instructions You were hospitalized to due to chest pain which eventually improved. EKG, cardiac enzymes and echocardiography are negative for heart attack. Stress test initially read as reversible perfusion defect in the inferior lateral wall but probably due to old infarcts per energy risk management analyst. You are started on aspirin, atorvastatin and metoprolol. Please continue your other medications. Please follow-up with PCP in 1 week. You may follow-up with energy risk management analyst Dr Hayes ( energy risk management analyst who has seen you in the hospital) if chest pain persists. Follow-up Provider: Jaimee Mott MD Follow-up with PCP in: 1 week Provider: Jared Hayes MD Follow-up in: 3 weeks Baldomero Spencer MD Feb 12, 2017 11:07
[2017-02-12] MEDS ORDERED: METO25TA99 PO (11:08)
[2017-02-12] MEDS ORDERED: LIP40 PO (11:08)
--- NOTE | 2017-02-12 12:12 | NUR ---
Discharge The pt left the unit on foot at 1200 with all his belongings and his packet of discharge paperwork. The pt is being transported home via private vehicle. The pt verbalized understanding of all presented educational materials and follow up appointment information. The pt left the unit A&O with VSS.
--- NOTE | 2017-02-12 12:53 | NUR ---
Social Work: Discharge D: EMR reviewed. Pt is on day 2 of hospitalization. Pt's family to provide transport home at discharge. SW provided phone number and plan on white board in room. No anticipated discharge needs. SW will continue to follow if needs arise. A: Pt who is independent at baseline. P: Pt to discharge home today via POV. No anticipated discharge needs. SW will continue to follow if needs arise. FOSTER Lamas
--- NOTE | 2017-02-12 13:11 | PCM.DC.MED ---
Discharge Summary Date of Service Feb 12, 2017 Dates of Hospitalization Date of Hospital Admission Feb 10, 2017 at 16:33 Date of Discharge: Feb 12, 2017 Providers: Admitting Physician: Baldomero Villalobos MD Primary Care Physician: Jaimee Mott MD Attending Physician: Baldomero Villalobos MD Diagnosis at Time of Discharge Diagnosis at Time of Discharge # Chest pain ACS ruled out # history of CAD s/p stent # History of lymphoma,hypogammaglobulinemia on monthly IVIG Consultations Cardiology Procedures Cardiac Echo Impression The left ventricle is normal in size, wall thickness, and systolic function without any focal wall motion abnormalities. The ejection fraction is estimated to be 60-65%. There are no focal wall motion abnormalities. The right ventricle is normal in size and function. The left atrium is moderately dilated. No other echocardiographic abnormalities seen. No obvious etiology noted for the patients c/o chest pain. Compared to the prior echo report on 09/10/2015, there is no significant change. Other Diagnostics PROCEDURE: 1 DAY TREADMILL STRESS TEST Rest and exercise myocardial perfusion SPECT with gated imaging and ejection fraction RADIOPHARMACEUTICAL: 10.3 mCi Tc-99m tetrafosmin IV at rest and 30.2 mCi Tc-99m tetrafosmin IV at peak exercise. [id number]-eygtdsus was performed. INDICATIONS: 66 year-old man with chest pain. Patient has coronary disease with history of myocardial infarction and coronary artery stenting in 2010. Evaluate myocardial ischemia. IMPRESSION: 1. Abnormal myocardial perfusion images. There is a medium-sized, mild-to- moderately severe, reversible perfusion defect in the inferior lateral wall, consistent with myocardial ischemia. 2. Normal left ventricular volume and systolic function. 3. Good exercise capacity. No chest pain or diagnostic EKG changes for ischemia. PQRS ATTESTATIONS: Measure 322 - Is this imaging test primarily performed on a low-risk surgery patient for preoperative evaluation within 30 days preceding their low-risk non- cardiac surgery? Low-risk surgery is defined as cardiac or myocardial infarction less than 1%, including (but not limited to) endoscopic procedures, superficial procedures, cataract surgery, and excisional breast surgery: Answer : No Measure 323 - Is this imaging test performed primarily for the monitoring of an asymptomatic patient who had percutaneous coronary intervention on the visit date or within 2 years of the visit date? Answer: No Measure 324 - Is this imaging test performed primarily for the initial detection and risk assessment on an asymptomatic, low coronary heart disease patient? Low CHD risk definition = clinicians should consider the maximum number of available patient factors used to estimate risk based on [place] ( ATP III criteria), typically age, gender, diabetes, smoking status, and use of blood pressure medication, and integrate age appropriate estimates for missing elements, such as LDL or standard blood pressure. Answer: No Dictated by: Frida Colvin M.D. on 02/11/2017 at 16:48 Brief History per HPI 66-year-old gentleman with past medical history of [place] status post stent in 2010 , history of stage IV lymphoplasmacytic lymphoma, chronic hypogammaglobulinemia on monthly IVIG, hypertension, hyperlipidemia came to emergency room due to chest pain of 12 hrs. Patient states he woke up at 4:30 AM with midsternal chest pain. Pain is pressure-like,6-7/10, intermittent, lasts for few minutes when it comes. He has also diaphoresis with chest pain that also has chronic nights sweating due to lymphoma. He is able to ambulate and able to take stairs without chest pain until yesterday. Did not notice any worsening of chest pain with exertion/walking. Denies lightheadedness. He states current chest pain is different from his prior [place] chest pain. Chest pain during prior [place] was more severe and associated with lightheadedness. Denies cough. Denies leg swelling. Denies fever. Denies any history of radiation. ED course: Vitals and exam unremarkable. EKG negative 2. Troponin negative 1. Chest pain unresponsive to nitrates. Patient already took aspirin. Admission requested for workup of chest pain Hospital Course 66-year-old gentleman with past medical history of [place] status post stent in 2010 , history of stage IV lymphoplasmacytic lymphoma, chronic hypogammaglobulinemia on monthly IVIG, hypertension, hyperlipidemia came to emergency room due to chest pain of 12 hrs. # Chest pain probably noncardiac -Symptom consistent with cardiac chest pain but EKG negative 2, troponin negative, . Chest pain unresponsive to nitrate -CTA negative for PE -Echocardiogram unremarkable as above - stress test medium-sized, [id number] severe, reversible perfusion defect in the inferior lateral wall, consistent with myocardial ischemia. -Consulted cardiology . Echo negative for wall motion abnormality . A stress test defect probably due to prior [place]. Recommended discharging him on aspirin and statin and beta yarely. Start atorvastatin 40 mg daily and metoprolol XL 25 mg per day - Continue aspirin # History of lymphoma,hypogammaglobulinemia on monthly IVIG -Dr. Siu oncologist outpatient Condition on discharge stable Discharge dome Exam Vital Signs (Last) Date Time Temp Pulse Resp B/P Pulse Ox O2 Delivery O2 Flow Rate FiO2 02/12/17 09:19 78 02/12/17 07:55 36.8 20 129/70 94 Room Air 02/10/17 15:06 1 Exam Gen. patient is lying comfortably in hospital bed HEENT: Head is normocephalic atraumatic, Pupils equal and reactive, extraocular movements intact, Lungs clear to auscultation bilaterally Heart regular rate and rhythm without murmurs gallops or rubs Abdomen soft nontender without hepatosplenomegaly Extremities pulses are present dorsalis pedis posterior tibialis and radial. Skin is warm and dry there are no rashes, Psych alert and oriented to person place and time Neuro cranial nerves II through XII are grossly intact Lymph: There is no lymphadenopathy appreciated in the cervical supra infraclavicular regions : no aguayo Test 02/10/17 12:45 02/10/17 23:15 02/11/17 05:15 Pro-B-Type Natriuretic Peptide 113.2pg/mL (0-376) Troponin T 0.010ug/L (0.0-0.011) White Blood Count 3.1th/mm3 (3.8-10.1) Red Blood Count 3.76mil/mm3 (4.40-5.80) Hemoglobin 11.9g/dL (13.8-17.2) Hematocrit 35.8% (41.0-50.0) Mean Corpuscular Volume 95.2fL (81-100) Mean Corpuscular Hemoglobin 31.6pg (27.0-35.0) Mean Corpuscular Hemoglobin Concent 33.2% (32.0-37.0) Red Cell Distribution Width 14.9% (12.3-15.4) Platelet Count 90bil/L (150-400) Neutrophils (%) (Auto) 47.1% (40-74) Lymphocytes (%) (Auto) 37.1% (14-46) Monocytes (%) (Auto) 14.8% (4-12) Eosinophils (%) (Auto) 1.0% (0-5) Basophils (%) (Auto) 0% (0-3) Sodium Level 137mEq/L (134-144) Potassium Level 4.3mEq/L (3.5-5.2) Chloride Level 99mEq/L (97-108) Carbon Dioxide Level 25mmol/L (18-29) Blood Urea Nitrogen 13mg/dL (8-27) Creatinine 0.71mg/dL (0.76-1.27) Estimat Glomerular Filtration Rate 117mL/min (>59) Glucose Level 107mg/dL (60-99) Calcium Level 9.4mg/dL (8.5-10.1) Magnesium Level 1.8mg/dL (1.6-2.6) Total Bilirubin 0.4mg/dL (0.0-1.2) Aspartate Amino Transf (AST/SGOT) 21U/L (0-50) Alanine Aminotransferase (ALT/SGPT) 11U/L (0-44) Alkaline Phosphatase 104U/L (25-160) Total Protein 7.2g/dL (6.4-8.4) Albumin 3.6g/dL (3.4-5.0) Procalcitonin 0.03ng/mL (0.00-0.08) Thyroid Stimulating Hormone (TSH) 1.330uIU/mL (0.450-4.500) Free Thyroxine 1.03ng/dL (0.82-1.77) Discharge Medications Discharge Medications Alprazolam (Xanax) 1 Mg Tablet 1 MG PO TIDWM (Reported) Alprazolam (Xanax) 2 Mg Tablet 2 MG PO HS (Reported) Aspirin Chew (Aspirin Chew) 81 Mg Chew 81 MG PO QAM (Reported) Atorvastatin (Lipitor) 40 Mg Tablet 40 MG PO DAILY Prescribed by: BALDOMERO VILLALOBOS MD Cetirizine HCl (Zyrtec) 10 Mg Capsule 10 MG PO MORNING (Reported) Cyanocobalamin (Vitamin B12) 1,000 Mcg Tablet 1,000 MCG PO MORNING (Reported) Fluoxetine (Prozac) 20 Mg Capsule 20 MG PO BID (Reported) Guaifenesin (Guaifenesin ER) 600 Mg Tab.er.12h 600 MG PO DAILY (Reported) Immune Glob,Harper Caprylate(IgG) (Gamunex-C) 20 Gm/200 Ml Vial 20 GM IV MONTHLY ( Reported) Metoprolol Succinate ER (Metoprolol Succinate ER) 25 Mg Tab.er.24h 25 MG PO DAILY Prescribed by: BALDOMERO VILLALOBOS MD Mirtazapine (Mirtazapine) 30 Mg Tablet 30 MG PO HS (Reported) Multivitamin (Multi Vitamin Daily) 1 Each Tablet 1 EACH PO DAILY (Reported) Omeprazole (Omeprazole) 20 Mg Capsule.dr 20 MG PO BIDAC (Reported) Oxycodone ER (Oxycontin) 80 Mg Tab.er.12h 80 MG PO BID (Reported) oxyCODONE-Acetaminophen 5-325 mg (oxyCODONE-Acetaminophen 5-325 mg) 1 Each Tablet 1-2 TABLET PO QID (Reported) 0600, 1200, 1800. 1 TABLET TID AND 2 AT HS. As needed Paregoric (Paregoric) 2 Mg/5 Ml Liquid 6 MG PO QID PRN PRN DUMPING SYNDROME ( Reported) Followup Plan Disposition: home Discharge Diet: Low fat, Low Sodium, Heart Healthy Discharge Activity: Limited until seen by PCP Patient Instructions You were hospitalized to due to chest pain which eventually improved. EKG, cardiac enzymes and echocardiography are negative for heart attack. Stress test initially read as reversible perfusion defect in the inferior lateral wall but probably due to old infarcts per test tube maker. You are started on aspirin, atorvastatin and metoprolol. Please continue your other medications. Please follow-up with PCP in 1 week. You may follow-up with test tube maker Dr Hayes ( test tube maker who has seen you in the hospital) if chest pain persists. Follow-up Provider: Jaimee Mott MD Follow-up with PCP in: 1 week Provider: Jared Hayes MD Follow-up in: 3 weeks Time spent 35 minutes copies to: Jared Hayes MD; Jaimee Mott MD, Melaku MD Feb 12, 2017 13:11
== END 2017-02-12 12:06 | disposition home or self-care (01) | DRG 313 ==
LOC: SED 12:36 → MPC 16:33 → OBSVTOIN 16:33 → MPC 17:09
PROVIDERS: ADMIT Internal Medicine; ATTEND Internal Medicine
DX: R07.89 Other chest pain (principal); D80.1 Nonfamilial hypogammaglobulinemia; D47.Z2 Castleman disease; I25.10 Atherosclerotic heart disease of native coronary artery without angina pectoris; I10 Essential (primary) hypertension; E78.5 Hyperlipidemia, unspecified; I25.2 Old myocardial infarction; Z95.5 Presence of coronary angioplasty implant and graft; Z87.891 Personal history of nicotine dependence